=== PATIENT | female | born 1965 | race Caucasian/White ===

== ENCOUNTER 2016-07-30 10:54 | Emergency (ER) | payer MEDICARE, MEDICAID ==
[~2016-07-30] VITALS: Ht 162.6 cm; Wt 90.9 kg
[~2016-07-30 10:54] MED LIST: AMBI5TAB PO; BENZ1TAB PO; CLON1 PO; LITHIUM PO; LORA10TA7 PO; OXYB5TAB33 PO; QUET1TAB65 PO; RISPERDAL CONSTA IM; RISPERDAL PO; RISPM2 PO; TRIL600T PO
[2016-07-30 10:56] VITALS: BP 193/100; PULSE 82; RESP 16; TEMP 98.1; O2SAT 95
--- NOTE | 2016-07-30 11:03 | PD ---
Physical Exam Time Seen by Provider: 11:02 Narrative 51 year old female presents to the ED for evaluation . Pt states she needs help with her baby to be delivered. She presents with flat affect and offers no definite information. Denies psyche or medical history. Denies SI/HI. Pt presents without distress. Data Data Last Documented VS Vital Signs Date Time Temp Pulse Resp B/P Pulse Ox O2 Delivery O2 Flow Rate FiO2 07/30/16 10:56 98.1 82 16 193/100 95 Room Air Orders Complete Blood Count With Diff (07/30/16 11:03) Basic Metabolic Panel (Bmp) (07/30/16 11:03) Urinalysis - C+S If Indicated (07/30/16 11:03) Drug Screen, Random Urine (07/30/16 11:03) Ed Urine Pregnancytest Poc (07/30/16 11:03) Alcohol (Ethanol) (07/30/16 11:03) Psych Screen (07/30/16 11:03) Labs Laboratory Tests Test 07/30/16 11:10 White Blood Count 7.1 TH/MM3 Red Blood Count 4.37 MIL/MM3 Hemoglobin 11.0 GM/DL Hematocrit 34.2 % Mean Corpuscular Volume 78.3 FL Mean Corpuscular Hemoglobin 25.3 PG Mean Corpuscular Hemoglobin 32.3 % Concent Red Cell Distribution Width 15.8 % Platelet Count 253 TH/MM3 Mean Platelet Volume 8.8 FL Neutrophils (%) (Auto) 55.6 % Lymphocytes (%) (Auto) 28.5 % Monocytes (%) (Auto) 10.3 % Eosinophils (%) (Auto) 4.4 % Basophils (%) (Auto) 1.2 % Neutrophils # (Auto) 4.0 TH/MM3 Lymphocytes # (Auto) 2.0 TH/MM3 Monocytes # (Auto) 0.7 TH/MM3 Eosinophils # (Auto) 0.3 TH/MM3 Basophils # (Auto) 0.1 TH/MM3 CBC Comment DIFF FINAL Differential Comment Urine Color LIGHT-YELLOW Urine Turbidity CLEAR Urine pH 5.5 Urine Specific [place] 1.003 Urine Protein NEG mg/dL Urine Glucose (UA) NEG mg/dL Urine Ketones NEG mg/dL Urine Occult Blood NEG Urine Nitrite NEG Urine Bilirubin NEG Urine Urobilinogen LESS THAN 2.0 MG/DL Urine Leukocyte Esterase NEG Urine RBC LESS THAN 1 /hpf Urine WBC 1 /hpf Urine Squamous Epithelial 1 /hpf Cells Microscopic Urinalysis Comment CULT NOT INDICATED Sodium Level 142 MEQ/L Potassium Level 4.3 MEQ/L Chloride Level 110 MEQ/L Carbon Dioxide Level 24.1 MEQ/L Anion Gap 8 MEQ/L Blood Urea Nitrogen 18 MG/DL Creatinine 2.05 MG/DL Estimat Glomerular Filtration 26 ML/MIN Rate Random Glucose 89 MG/DL Calcium Level 9.4 MG/DL Urine Opiates Screen NEG Urine Barbiturates Screen NEG Urine Amphetamines Screen NEG Urine Benzodiazepines Screen NEG Urine Cocaine Screen NEG Urine Cannabinoids Screen NEG Ethyl Alcohol Level LESS THAN 3 MG/DL MDM Medical Record Reviewed: Yes Supervised Visit with EVANS: No Narrative Course Presumed psych with history of schizo effective d/o. Pt has a bizarre affect; poor historian; appears without distress. Work up initiated in triage. 1200 Pt with creatinine of 2. Transferred to med bed Condition: Stable Gayle Obregon Jul 30, 2016 11:03
[2016-07-30 11:33] LABS: BASOPHIL # 0.1 TH/MM3 (0-0.2); BASOPHIL % 1.2 % (0.0-2.0); EOSINOPHIL # 0.3 TH/MM3 (0-0.4); EOSINOPHIL % 4.4 % (0.0-4.0); HEMATOCRIT 34.2 % (35.0-46.0); HEMO FLAGS DIFF FINAL; LYMPH % 28.5 % (9.0-44.0); MEAN CELL VOLUME 78.3 FL (80.0-100.0); MEAN CORPUSCULAR HEMOGLOBIN 25.3 PG (27.0-34.0); MEAN CORPUSCULAR HGB CONC 32.3 % (32.0-36.0); MONO % 10.3 % (0.0-8.0); NEUT % 55.6 % (16.0-70.0); PLATELET COUNT 253 TH/MM3 (150-450); RED BLOOD COUNT 4.37 MIL/MM3 (4.00-5.30); RED CELL DISTRIBUTION WIDTH 15.8 % (11.6-17.2); WHITE BLOOD COUNT 7.1 TH/MM3 (4.0-11.0)
[2016-07-30 11:38] LABS: BLOOD, URINE NEG (NEG); GLUCOSE,URINE NEG (NEG); KETONE, URINE NEG (NEG); NITRITE,URINE NEG (NEG); PH, URINE 5.5 (5.0-8.5); SQUAMOUS EPITHELIAL CELL URINE 1 /hpf (0-5); URINE COLOR LIGHT-YELLOW (YELLW/STRAW)
[2016-07-30 11:41] LABS: AMPHETAMINE, URINE NEG (NEG); BARBITURATES, URINE NEG (NEG); COCAINE, URINE NEG (NEG)
[2016-07-30 11:47] LABS: COMMENT (UR) CULT NOT INDICATED; CULTURE IF INDICATED CULT NOT INDICATED
[2016-07-30 11:51] LABS: ANION GAP 8 MEQ/L (5-15); BICARBONATE 24.1 MEQ/L (21.0-32.0); BLOOD UREA NITROGEN 18 MG/DL (7-18); CHLORIDE 110 MEQ/L (98-107); GLOMERULAR FILTRATION RATE 26 ML/MIN (>89); POTASSIUM 4.3 MEQ/L (3.5-5.1); SODIUM (NA) 142 MEQ/L (136-145)
--- NOTE | 2016-07-30 12:33 | PD ---
Physical Exam Time Seen by Provider: 12:27 Narrative 51-year-old female with history of schizophrenia presents to the emergency room via private vehicle stating that she is in labor and would like to deliver her baby. Patient states they were started 2 days ago with nausea and vomiting. She has had no contractions, vaginal discharge, or other episodes of nausea and vomiting. States she is 9 months . Patient states her mother dropped her off at school and she walked from school at [facility] to the emergency room for evaluation of possible labor. Patient denies any chronic kidney disease and states she has been eating and drinking normally. Reports normal bladder and bowel function. Denies chronic medical conditions or daily medications. GENERAL: Well-nourished, obese female in no acute distress. Afebrile. Ambulatory. SKIN: Warm and dry. HEAD: Normocephalic. EYES: No scleral icterus. No injection or drainage. NECK: Supple, trachea midline. No JVD or lymphadenopathy. CARDIOVASCULAR: Regular rate and rhythm without murmurs, gallops, or rubs. RESPIRATORY: Breath sounds equal bilaterally. No accessory muscle use. PSYCHIATRIC: Flat affect. Patient has a delusion of . Data Data Last Documented VS Vital Signs Date Time Temp Pulse Resp B/P Pulse Ox O2 Delivery O2 Flow Rate FiO2 07/30/16 12:40 132/66 07/30/16 10:56 98.1 82 16 95 Room Air Orders Complete Blood Count With Diff (07/30/16 11:03) Basic Metabolic Panel (Bmp) (07/30/16 11:03) Urinalysis - C+S If Indicated (07/30/16 11:03) Drug Screen, Random Urine (07/30/16 11:03) Ed Urine Pregnancytest Poc (07/30/16 11:03) Alcohol (Ethanol) (07/30/16 11:03) Psych Screen (07/30/16 11:03) Sodium Chlorid 0.9% 500 Ml Inj (Ns 500 M (07/30/16 12:45) Labs Laboratory Tests Test 07/30/16 11:10 White Blood Count 7.1 TH/MM3 Red Blood Count 4.37 MIL/MM3 Hemoglobin 11.0 GM/DL Hematocrit 34.2 % Mean Corpuscular Volume 78.3 FL Mean Corpuscular Hemoglobin 25.3 PG Mean Corpuscular Hemoglobin 32.3 % Concent Red Cell Distribution Width 15.8 % Platelet Count 253 TH/MM3 Mean Platelet Volume 8.8 FL Neutrophils (%) (Auto) 55.6 % Lymphocytes (%) (Auto) 28.5 % Monocytes (%) (Auto) 10.3 % Eosinophils (%) (Auto) 4.4 % Basophils (%) (Auto) 1.2 % Neutrophils # (Auto) 4.0 TH/MM3 Lymphocytes # (Auto) 2.0 TH/MM3 Monocytes # (Auto) 0.7 TH/MM3 Eosinophils # (Auto) 0.3 TH/MM3 Basophils # (Auto) 0.1 TH/MM3 CBC Comment DIFF FINAL Differential Comment Urine Color LIGHT-YELLOW Urine Turbidity CLEAR Urine pH 5.5 Urine Specific [place] 1.003 Urine Protein NEG mg/dL Urine Glucose (UA) NEG mg/dL Urine Ketones NEG mg/dL Urine Occult Blood NEG Urine Nitrite NEG Urine Bilirubin NEG Urine Urobilinogen LESS THAN 2.0 MG/DL Urine Leukocyte Esterase NEG Urine RBC LESS THAN 1 /hpf Urine WBC 1 /hpf Urine Squamous Epithelial 1 /hpf Cells Microscopic Urinalysis Comment CULT NOT INDICATED Sodium Level 142 MEQ/L Potassium Level 4.3 MEQ/L Chloride Level 110 MEQ/L Carbon Dioxide Level 24.1 MEQ/L Anion Gap 8 MEQ/L Blood Urea Nitrogen 18 MG/DL Creatinine 2.05 MG/DL Estimat Glomerular Filtration 26 ML/MIN Rate Random Glucose 89 MG/DL Calcium Level 9.4 MG/DL Urine Opiates Screen NEG Urine Barbiturates Screen NEG Urine Amphetamines Screen NEG Urine Benzodiazepines Screen NEG Urine Cocaine Screen NEG Urine Cannabinoids Screen NEG Ethyl Alcohol Level LESS THAN 3 MG/DL [facility] Medical Record Reviewed: Yes Supervised Visit with EVANS: Yes Differential Diagnosis Schizophrenia versus versus acute kidney injury Narrative Course 51-year-old female with history of schizophrenia presents to the emergency room for labor and delivery. Patient states she is 9 months and started labor 2-3 days ago. Denies any current symptoms. Patient has delusions of . States she is eating and drinking normally and using the restroom normally. Abdomen is soft, nontender, nongravid. CBC is unremarkable. Drug screen and alcohol are negative. UA is negative. ED urine test is negative. BMP shows mild elevation of creatinine. Patient denies any chronic kidney disease. She was given 500 cc bolus. I spoke to my attending physician , Dr. Sprague, who agrees there is no indication for medical admission. Patient is medically cleared for psychiatric evaluation and disposition. Diagnosis Primary Impression: Medical clearance for psychiatric admission Scripts No Active Prescriptions or Reported Meds Condition: Stable Oksana Olivares Jul 30, 2016 12:33
[2016-07-30 12:40] VITALS: BP 132/66
[2016-07-30] MEDS ORDERED: SODIUM CHLORID 0.9% 500 ML INJ 500 ML IV ONE (12:45)
--- NOTE | 2016-07-30 14:05 | PD ---
HPI Chief Complaint: Psychiatric Symptoms Time Seen by Provider: 12:33 Travel History International Travel<30 days: No Contact w/Intl Traveler<30days: No Traveled to known affect area: No History of Present Illness HPI 51-year-old female with history of schizophrenia presents to the emergency room via private vehicle stating that she is in labor and would like to deliver her baby. Patient states they were started 2 days ago with nausea and vomiting. She has had no contractions, vaginal discharge, or other episodes of nausea and vomiting. States she is 9 months . Patient states her mother dropped her off at school and she walked from school at [facility] to the emergency room for evaluation of possible labor. Patient denies any chronic kidney disease and states she has been eating and drinking normally. Reports normal bladder and bowel function. Denies chronic medical conditions or daily medications. PFSH Past Medical History Medical History: Denies Significant Hx Blood Disorders: No Cancer: No Cardiovascular Problems: Yes High Cholesterol: Yes Diminished Hearing: No Endocrine: No Gastrointestinal Disorders: No Genitourinary: No Hypertension: Yes Immune Disorder: No Implanted Vascular Access Dvce: No Musculoskeletal: No Neurologic: No Psychiatric: Yes (LONG HISTORY OF SCHIZOAFFECTIVE) Reproductive: No Respiratory: Yes Myocardial Infarction: No ?: Unknown LMP: this month : 1 Para: 1 Past Surgical History Surgical History: No Previous Surgery Other Surgery: No (DENIES) Social History Alcohol Use: No Tobacco Use: Yes (1/2 TO 1PPD CIGARETTES) Substance Use: No (REMOTE HX) Allergies-Medications (Allergen,Severity, Reaction): Coded Allergies: No Known Allergies (Verified , 10/19/09) Reported Meds & Prescriptions Reported Meds & Active Scripts Active No Active Prescriptions or Reported Medications Review of Systems Except as stated in HPI: all other systems reviewed are Neg Physical Exam Narrative GENERAL: Well-nourished, obese female in no acute distress. Afebrile. Ambulatory. SKIN: Warm and dry. HEAD: Normocephalic. EYES: No scleral icterus. No injection or drainage. NECK: Supple, trachea midline. No JVD or lymphadenopathy. CARDIOVASCULAR: Regular rate and rhythm without murmurs, gallops, or rubs. RESPIRATORY: Breath sounds equal bilaterally. No accessory muscle use. PSYCHIATRIC: Flat affect. Patient has a delusion of . Data Data Last Documented VS Vital Signs Date Time Temp Pulse Resp B/P Pulse Ox O2 Delivery O2 Flow Rate FiO2 07/30/16 12:40 132/66 07/30/16 10:56 98.1 82 16 95 Room Air Orders Complete Blood Count With Diff (07/30/16 11:03) Basic Metabolic Panel (Bmp) (07/30/16 11:03) Urinalysis - C+S If Indicated (07/30/16 11:03) Drug Screen, Random Urine (07/30/16 11:03) Ed Urine Pregnancytest Poc (07/30/16 11:03) Alcohol (Ethanol) (07/30/16 11:03) Psych Screen (07/30/16 11:03) Sodium Chlorid 0.9% 500 Ml Inj (Ns 500 M (07/30/16 12:45) Labs Laboratory Tests Test 07/30/16 11:10 White Blood Count 7.1 TH/MM3 Red Blood Count 4.37 MIL/MM3 Hemoglobin 11.0 GM/DL Hematocrit 34.2 % Mean Corpuscular Volume 78.3 FL Mean Corpuscular Hemoglobin 25.3 PG Mean Corpuscular Hemoglobin 32.3 % Concent Red Cell Distribution Width 15.8 % Platelet Count 253 TH/MM3 Mean Platelet Volume 8.8 FL Neutrophils (%) (Auto) 55.6 % Lymphocytes (%) (Auto) 28.5 % Monocytes (%) (Auto) 10.3 % Eosinophils (%) (Auto) 4.4 % Basophils (%) (Auto) 1.2 % Neutrophils # (Auto) 4.0 TH/MM3 Lymphocytes # (Auto) 2.0 TH/MM3 Monocytes # (Auto) 0.7 TH/MM3 Eosinophils # (Auto) 0.3 TH/MM3 Basophils # (Auto) 0.1 TH/MM3 CBC Comment DIFF FINAL Differential Comment Urine Color LIGHT-YELLOW Urine Turbidity CLEAR Urine pH 5.5 Urine Specific [place] 1.003 Urine Protein NEG mg/dL Urine Glucose (UA) NEG mg/dL Urine Ketones NEG mg/dL Urine Occult Blood NEG Urine Nitrite NEG Urine Bilirubin NEG Urine Urobilinogen LESS THAN 2.0 MG/DL Urine Leukocyte Esterase NEG Urine RBC LESS THAN 1 /hpf Urine WBC 1 /hpf Urine Squamous Epithelial 1 /hpf Cells Microscopic Urinalysis Comment CULT NOT INDICATED Sodium Level 142 MEQ/L Potassium Level 4.3 MEQ/L Chloride Level 110 MEQ/L Carbon Dioxide Level 24.1 MEQ/L Anion Gap 8 MEQ/L Blood Urea Nitrogen 18 MG/DL Creatinine 2.05 MG/DL Estimat Glomerular Filtration 26 ML/MIN Rate Random Glucose 89 MG/DL Calcium Level 9.4 MG/DL Urine Opiates Screen NEG Urine Barbiturates Screen NEG Urine Amphetamines Screen NEG Urine Benzodiazepines Screen NEG Urine Cocaine Screen NEG Urine Cannabinoids Screen NEG Ethyl Alcohol Level LESS THAN 3 MG/DL MDM Medical Decision Making Medical Screen Exam Complete: Yes Emergency Medical Condition: Yes Medical Record Reviewed: Yes Differential Diagnosis schizophrenia versus acute kidney injury versus dehydration Narrative Course 51-year-old female with history of schizophrenia presents to the emergency room for labor and delivery. Patient states she is 9 months and started labor 2-3 days ago. Denies any current symptoms. Patient has delusions of . States she is eating and drinking normally and using the restroom normally. Abdomen is soft, nontender, nongravid. CBC is unremarkable. Drug screen and alcohol are negative. UA is negative. ED urine test is negative. BMP shows mild elevation of creatinine. Patient denies any chronic kidney disease. She was given 500 cc bolus. I spoke to my attending physician , Dr. Sprague, who agrees there is no indication for medical admission. Patient is medically cleared for psychiatric evaluation and disposition. Diagnosis Primary Impression: Medical clearance for psychiatric admission Additional Impression: Acute kidney injury Scripts No Active Prescriptions or Reported Meds Condition: Oksana Galo Jul 30, 2016 14:05
[2016-07-30 15:00] VITALS: BP 128/54; PULSE 68; RESP 18; O2SAT 97
[2016-07-30 18:38] VITALS: BP 131/73; PULSE 63; RESP 18; O2SAT 95
[2016-07-30 23:10] VITALS: BP 123/88; PULSE 61; RESP 16; O2SAT 100
[2016-07-31 02:42] VITALS: BP 133/83; PULSE 50; RESP 18; O2SAT 97
[2016-07-31 06:24] VITALS: BP 150/80; PULSE 75; RESP 19; TEMP 97.3; O2SAT 97
--- NOTE | 2016-07-31 07:17 | PD ---
History of Present Illness Chief Complaint: Psychiatric Symptoms Time Seen by Provider: 07:00 Travel History International Travel<30 Days: No Contact w/Intl Traveler<30days: No Known affected area: No Legal Status Legal Status: Voluntary History of Present Illness: History of Present Illness 51-year-old female with history of schizoaffective disorder who presents to the emergency room via private vehicle and stated that "she is in labor and would like to deliver her baby". Patient was referred to psychiatric for evaluation as she is obviously not . The patient was monitored over night in J pod. She was calm and presented no behavioral concerns. In reviewing the EMR the patient was least seen at [facility] and treated by psychiatry in 2009. She is alert, oriented, engaging and cooperative. She appears stated age and is maintaining basic hygiene. Speech is clear and logical although there is a slight delay in her responses. She does not appear to be responding to internal stimuli and denies any hallucinatory process. When asked why she came to the hospital she relates that she was at [facility] and owes some money and the police were called and she was told to come to the hospital. She does anot talk about being . She does not endorse any significant depression or anxiety at this time. No suicidal or homicidal ideation, intent or plan. She denies that she is currently under psychiatric treatment or that she has ever received psychiatric treatment. She is eating and sleeping well. Telephone call to her mother, Mary Jane Villanueva at [phone], to obtain collateral information. Mother reports " she has andrew nice at home and that she was worse when she took medication. She even wants to go to school now. She has no concerns if she is discharged." PFSH Past Medical History Medical History: Denies Significant Hx Blood Disorders: No Cancer: No Cardiovascular Problems: Yes High Cholesterol: Yes Diminished Hearing: No Endocrine: No Gastrointestinal Disorders: No Genitourinary: No Hypertension: Yes Immune Disorder: No Implanted Vascular Access Dvce: No Musculoskeletal: No Neurologic: No Psychiatric: Yes (LONG HISTORY OF SCHIZOAFFECTIVE) Reproductive: No Respiratory: Yes Myocardial Infarction: No ?: Unknown LMP: this month : 1 Para: 1 Past Surgical History Surgical History: No Previous Surgery Other Surgery: No (DENIES) Psychiatric History Psychiatric History Hx Psychiatric Treatment: PATIENT WAS LAST ADMITTED TO [facility] FROM 07/09/10 TO 07/22/10 FOR SCHIZOAFFECTIVE DISORDER. History of Inpatient Treatment: Yes Guns or firearms in home: No Social History single female. Lives with her mother.Unemployed Hx Alcohol Use: No Hx Tobacco Use: Yes (1/2 TO 1PPD CIGARETTES) Hx Substance Use: No Hx of Substance Use Treatment: No Family Psychiatric History none reported Allergies-Medications (Allergen,Severity, Reaction): Coded Allergies: No Known Allergies (Verified , 10/19/09) Reported Meds & Prescriptions Reported Meds & Active Scripts Active No Active Prescriptions or Reported Medications Review of Systems Except as stated in HPI: all other systems reviewed are Neg Psychiatric: COMPLAINS OF: Delusions (believes she is ) Exam Alert: Yes [place]: Person (ox 4) Mood: Calm Affect: Euthymic Speech: Clear, Logical Eye Contact: Normal Memory Intact: Comment (not formally tetsted) [facility] Medical Decision Making Medical Record Reviewed: Yes Assessment/Plan 51 year old female with history of schizoaffective disorder who comes to the hospital on a voluntary basis reporting that she was in labor. Patient did not present any other psychiatric symptomatology. There is no suicidal or homicidal ideation intent or plan. At this time the patient is not presenting any criteria for inpatient psychiatric treatment and does not meet any criteria for BA. Furthermore her mother has no concerns for her current psychiatric status and reports she is doing well. At this time she will be discharged. The mother will bring the patient to her PCP for evaluation. Orders Complete Blood Count With Diff (07/30/16 11:03) Basic Metabolic Panel (Bmp) (07/30/16 11:03) Urinalysis - C+S If Indicated (07/30/16 11:03) Drug Screen, Random Urine (07/30/16 11:03) Ed Urine Pregnancytest Poc (07/30/16 11:03) Alcohol (Ethanol) (07/30/16 11:03) Psych Screen (07/30/16 11:03) Sodium Chlorid 0.9% 500 Ml Inj (Ns 500 M (07/30/16 12:45) Diet Regular Basic (07/30/16 Dinner) Diet Regular Basic (07/31/16 Breakfast) Results Vital Signs Date Time Temp Pulse Resp B/P Pulse Ox O2 Delivery O2 Flow Rate FiO2 07/31/16 06:24 97.3 75 19 150/80 97 Room Air 07/31/16 02:42 50 18 133/83 97 Room Air 07/30/16 23:10 61 16 123/88 100 07/30/16 18:38 63 18 131/73 95 Room Air 07/30/16 15:00 68 18 128/54 97 Room Air 07/30/16 12:40 132/66 07/30/16 10:56 98.1 82 16 193/100 95 Room Air Laboratory Tests Test 07/30/16 11:10 White Blood Count 7.1 Red Blood Count 4.37 Hemoglobin 11.0 Hematocrit 34.2 Mean Corpuscular Volume 78.3 Mean Corpuscular Hemoglobin 25.3 Mean Corpuscular Hemoglobin 32.3 Concent Red Cell Distribution Width 15.8 Platelet Count 253 Mean Platelet Volume 8.8 Neutrophils (%) (Auto) 55.6 Lymphocytes (%) (Auto) 28.5 Monocytes (%) (Auto) 10.3 Eosinophils (%) (Auto) 4.4 Basophils (%) (Auto) 1.2 Neutrophils # (Auto) 4.0 Lymphocytes # (Auto) 2.0 Monocytes # (Auto) 0.7 Eosinophils # (Auto) 0.3 Basophils # (Auto) 0.1 CBC Comment DIFF FINAL Differential Comment Urine Color LIGHT-YELLOW Urine Turbidity CLEAR Urine pH 5.5 Urine Specific [place] 1.003 Urine Protein NEG Urine Glucose (UA) NEG Urine Ketones NEG Urine Occult Blood NEG Urine Nitrite NEG Urine Bilirubin NEG Urine Urobilinogen LESS THAN 2.0 Urine Leukocyte Esterase NEG Urine RBC LESS THAN 1 Urine WBC 1 Urine Squamous Epithelial 1 Cells Microscopic Urinalysis Comment CULT NOT INDICATED Sodium Level 142 Potassium Level 4.3 Chloride Level 110 Carbon Dioxide Level 24.1 Anion Gap 8 Blood Urea Nitrogen 18 Creatinine 2.05 Estimat Glomerular Filtration 26 Rate Random Glucose 89 Calcium Level 9.4 Urine Opiates Screen NEG Urine Barbiturates Screen NEG Urine Amphetamines Screen NEG Urine Benzodiazepines Screen NEG Urine Cocaine Screen NEG Urine Cannabinoids Screen NEG Ethyl Alcohol Level LESS THAN 3 Diagnosis Primary Impression: Schizoaffective disorder Psychiatrically Cleared: Yes Med/ Other Pt Specific Info: No Change to Meds Prescriptions No Active Prescriptions or Reported Meds Disposition: 01 DISCHARGE HOME Condition: Stable Problem Qualifiers Primary Impression: Schizoaffective disorder Qualified Code: F25.0 - Schizoaffective disorder, bipolar type Annel Anderson Jul 31, 2016 07:17
[2016-07-31 07:48] VITALS: BP 150/80; PULSE 75; RESP 19; O2SAT 97
== END 2016-07-31 08:40 | disposition home or self-care (01) ==
LOC: NEPC 10:54 → NEPJ 07-31 08:40
DX: E78.00 Pure hypercholesterolemia, unspecified (principal); I10 Essential (primary) hypertension; F17.210 Nicotine dependence, cigarettes, uncomplicated
CPT/HCPCS: 80048; 80307; 81001; 84703; 85025; 96360; 99284; J7040; 80320

== ENCOUNTER 2018-01-17 17:27 | Observation (INO) ==
[2018-01-17] MEDS ORDERED: Sod Chloride 0.9% Inj 1,000 ML IV.SIG ONE ×2 (18:19→19:32)
[2018-01-17 18:49] LABS: Baso # (Auto) 0.1 th/mm3 (0.0-0.2); Baso % (Auto) 0.7 % (0.0-2.0); Eos # (Auto) 0.9 th/mm3 (0.0-0.4); Eos % (Auto) 4.4 % (0.0-4.0); Hematocrit 34.1 % (35.0-46.0); Hemoglobin 10.6 gm/dL (11.6-15.3); Lymph # (Auto) 4.2 th/mm3 (1.0-4.8); Lymph % (Auto) 21.4 % (9.0-44.0); Mean Corpuscular HGB Conc 31.1 % (32.0-36.0); Mean Corpuscular Hemoglobin 26.1 pg (27.0-34.0); Mean Corpuscular Volume 83.9 fL (80.0-100.0); Mean Platelet Volume 8.5 fL (7.0-11.0); Mono # (Auto) 1.5 th/mm3 (0.0-0.9); Mono % (Auto) 7.6 % (0.0-8.0); Neut # (Auto) 12.8 th/mm3 (1.8-7.7); Neut % (Auto) 65.9 % (16.0-70.0); Platelet Count 298 th/mm3 (150-450); Red Blood Count 4.06 mil/mm3 (4.00-5.30); Red Cell Distribution Width 16.9 % (11.6-17.2); White Blood Count 19.5 th/mm3 (4.0-11.0)
[2018-01-17 19:06] LABS: Anion Gap 23 meq/L (5-15); Aspartate Aminotransferase 18 U/L (15-37); Blood Urea Nitrogen 22 mg/dL (7-18); Calcium 8.7 mg/dL (8.5-10.1); Carbon Dioxide 11.1 meq/L (21.0-32.0); Chloride 108 meq/L (98-107); Glomerular Filtration Rate 22 mL/min (>89); Glucose,Random 115 mg/dL (74-106); Magnesium 2.5 mg/dL (1.5-2.5); Potassium 3.6 meq/L (3.5-5.1); Sodium 142 meq/L (136-145)
[2018-01-17 19:11] LABS: Alanine Aminotransferase 18 U/L (10-53); Alkaline Phosphatase 74 U/L (45-117); Total Protein 6.8 g/dL (6.4-8.2)
--- NOTE | 2018-01-17 19:40 | XR ---
EXAM DATE: 01/17/2018 7:35 PM EDT AGE/SEX: 52 years / Female INDICATIONS: Short of breath. CLINICAL DATA: This is the patient's initial encounter. Patient reports that signs and symptoms have been present for 1 day and indicates a pain score of 0/10. MEDICAL/SURGICAL HISTORY: None. None. COMPARISON: No prior exams available for comparison. FINDINGS: PA and lateral views of the chest demonstrate basilar density, probably atelectasis. Heart size mildl y enlarged. No pneumothorax or significant effusion. CONCLUSION: Probable basilar atelectasis. Exam limited by patient size. Electronically signed by: Husam Archer MD 01/17/2018 7:39 PM EDT
--- NOTE | 2018-01-17 19:54 | ED ---
HPI General Chief complaint: Anxiety Stated complaint: Evac/Anxiety Time Seen by Provider: 01/17/18 18:11 Source: patient and EMS Mode of arrival: ambulatory Limitations: no limitations History of Present Illness HPI narrative: Department for evaluation after a near syncopal episode. Patient states that she suddenly had this sense of impending doom, over her and she fell to her knees. Patient states that she felt sweaty and short of breath. She denies any chest pain, headache, dizziness. She denies feeling poorly prior to that moment.. Symptom onset was sudden, symptoms are moderate in nature. Patient reports that she gets very anxious when she goes outside. Related Data Home Medications Medication Instructions Recorded Confirmed divalproex 500 mg PO BID 01/17/18 01/17/18 levothyroxine 100 mcg PO DAILY 01/17/18 01/17/18 trazodone 50 mg PO HS 01/17/18 01/17/18 Previous Rx's Medication Instructions Recorded clonidine HCl [Catapres] 0.1 mg PO Q6H PRN tab 01/18/18 hydroxyzine HCl 25 mg PO Q6H PRN tab 01/18/18 Allergies Allergy/AdvReac Type Severity Reaction Status Date / Time No Known Allergies Allergy Severe Uncoded 10/19/09 12:18 Review of Systems Except as stated in HPI: all other systems reviewed are negative Constitutional Reports system reviewed and no additional complaints, except as docu Eyes Reports system reviewed and no additional complaints, except as docu and Denies blurry vision ENT Reports system reviewed and no additional complaints, except as docu Cardiovascular Reports diaphoresis, Reports rapid heart rate and Reports lightheadedness Respiratory Reports dyspnea Gastrointestinal Reports system reviewed and no additional complaints, except as docu Genitourinary Reports system reviewed and no additional complaints, except as docu Musculoskeletal Reports system reviewed and no additional complaints, except as docu Integumentary/Breasts Reports wounds (Abrasions to bilateral anterior knees.) Neurologic Reports system reviewed and no additional complaints, except as docu Psychiatric Reports system reviewed and no additional complaints, except as docu [facility] Medical History Medical History HTN (hypertension) (Acute) Hypothyroidism (Acute) Anxiety (Chronic) Depression (Chronic) Insomnia (Chronic) Surgical History Surgical History No history of previous surgery (Chronic) Family History Family History Sister No family history of coronary artery disease Other Bipolar disorder Social History Social History Substance History: No History of Abuse Second Hand Smoke Exposure: Yes Smoking Status: Current every day smoker Tobacco Type: Cigarettes How Often Do You Have a Drink Containing Alcohol: Monthly or less Immunization History Tetanus Immunization: >5 Years Exam Const General: cooperative, comfortable, no acute distress and disheveled Nutritional Appearance: obese Orientation: alert, awake and oriented x3 HENMT Head: normal to inspection Ears: hearing grossly normal bilaterally Eyes Pupils: PERRL EOM: EOM intact bilaterally Resp Effort & Inspection: able to speak in complete sentences, no audible wheezes and tachypneic Auscultation: diminished lung sounds Cardio Rate: regular rate and tachycardic Rhythm: regular rhythm Skin Trauma: abrasion (bilateral anterior knees) Neuro General: alert, awake, oriented x3 and CN's II-XI intact bilaterally Motor: muscle tone normal throughout and strength 5/5 throughout Extrem General: normal to inspection Psych Appearance: disheveled Mental Status: mental status grossly normal Speech and Movement: speech and movement normal Mood: congruent mood Affect: euphoric affect Attitude: cooperative Thought Process: normal Course Initial Documented Vital Signs Temperature 99.2 F 01/17/18 17:40 Pulse Rate 113 H 01/17/18 17:40 Respiratory Rate 28 H 01/17/18 17:40 Blood Pressure 89/53 L 01/17/18 17:40 Pulse Oximetry 94 L 01/17/18 17:40 Last Documented Vital Signs Temperature 98.9 F 01/18/18 16:00 Pulse Rate 81 01/18/18 16:00 Respiratory Rate 19 01/18/18 16:00 Blood Pressure 112/70 01/18/18 16:00 Pulse Oximetry 94 L 01/18/18 16:00 Medical Decision Making [facility] Narrative Medical decision making narrative: Patient is a 52-year-old female that presented after which she calls a panic attack caused her to fall to her knees. Patient presented tachycardic and hypotensive. Patient is a poor historian. Labs and imaging ordered and pending. Labs reviewed, CBC with white blood cell count of 19.5. BUN and creatinine are elevated 22/2.36, IVF ordered and infusing. VQ scan pending. Urinalysis is unremarkable Patient will be admitted for near syncopal episode, leukocytosis, acute renal insufficiency. Discussed plan of care with my attending physician prior to the end of her shift. Differential Diagnosis Differential Diagnosis: Metabolic abnormality versus sepsis versus arrhythmia versus pulmonary embolism versus other Lab Data Lab results reviewed: Yes I reviewed the patient's lab results. Result diagrams: 01/17/18 18:30 01/17/18 18:30 Lab Results 01/17/18 01/17/18 01/17/18 Range/Units 18:30 18:30 18:30 WBC 19.5 H (4.0-11.0) th/mm3 RBC 4.06 (4.00-5.30) mil/mm3 Hgb 10.6 L (11.6-15.3) gm/dL Hct 34.1 L (35.0-46.0) % MCV 83.9 (80.0-100.0) fL MCH 26.1 L (27.0-34.0) pg MCHC 31.1 L (32.0-36.0) % RDW 16.9 (11.6-17.2) % Plt Count 298 (150-450) th/mm3 MPV 8.5 (7.0-11.0) fL Neut % (Auto) 65.9 (16.0-70.0) % Lymph % (Auto) 21.4 (9.0-44.0) % [place] % (Auto) 7.6 (0.0-8.0) % Eos % (Auto) 4.4 H (0.0-4.0) % Baso % (Auto) 0.7 (0.0-2.0) % Neut # (Auto) 12.8 H (1.8-7.7) th/mm3 Lymph # (Auto) 4.2 (1.0-4.8) th/mm3 [place] # (Auto) 1.5 H (0.0-0.9) th/mm3 Eos # (Auto) 0.9 H (0.0-0.4) th/mm3 Baso # (Auto) 0.1 (0.0-0.2) th/mm3 WBC Differential . Differential Comment Auto diff final Sodium 142 (136-145) meq/L Potassium 3.6 (3.5-5.1) meq/L Chloride 108 H (98-107) meq/L Carbon Dioxide 11.1 L (21.0-32.0) meq/L Anion Gap 23 H (5-15) meq/L BUN 22 H (7-18) mg/dL Creatinine 2.36 H (0.50-1.00) mg/dL Estimated GFR 22 L (>89) mL/min POC Glucose 142 H (68-110) mg/dl Random Glucose 115 H (74-106) mg/dL Calcium 8.7 (8.5-10.1) mg/dL Magnesium 2.5 (1.5-2.5) mg/dL Total Bilirubin 0.2 (0.2-1.0) mg/dL AST 18 (15-37) U/L ALT 18 (10-53) U/L Alkaline Phosphatase 74 (45-117) U/L Troponin I Less than 0.02 L (0.02-0.05) ng/mL Total Protein 6.8 (6.4-8.2) g/dL Albumin 3.0 L (3.4-5.0) g/dL Urine Color (Yellw/Straw) Urine Clarity (Clear) Urine pH (5.0-8.5) Ur Specific [place] (1.002-1.035) Urine Protein (Neg-Trace) mg/dL Urine Glucose (UA) (Negative) mg/dL Urine Ketones (Negative) mg/dL Urine Occult Blood (Negative) Urine Nitrate (Negative) Urine Bilirubin (Negative) Urine Urobilinogen (Less than 2) mg/dL Ur Leukocyte Esterase (Negative) Urine RBC (0-3) /hpf Urine WBC (0-5) /hpf Ur Squamous Epith Cells (0-5) /hpf Micro UA Comment Urine Culture Comments Valproic Acid (50-100) mcg/mL 01/17/18 01/17/18 01/18/18 Range/Units 18:30 21:10 01:35 WBC (4.0-11.0) th/mm3 RBC (4.00-5.30) mil/mm3 Hgb (11.6-15.3) gm/dL Hct (35.0-46.0) % MCV (80.0-100.0) fL MCH (27.0-34.0) pg MCHC (32.0-36.0) % RDW (11.6-17.2) % Plt Count (150-450) th/mm3 MPV (7.0-11.0) fL Neut % (Auto) (16.0-70.0) % Lymph % (Auto) (9.0-44.0) % [place] % (Auto) (0.0-8.0) % Eos % (Auto) (0.0-4.0) % Baso % (Auto) (0.0-2.0) % Neut # (Auto) (1.8-7.7) th/mm3 Lymph # (Auto) (1.0-4.8) th/mm3 [place] # (Auto) (0.0-0.9) th/mm3 Eos # (Auto) (0.0-0.4) th/mm3 Baso # (Auto) (0.0-0.2) th/mm3 WBC Differential Differential Comment Sodium (136-145) meq/L Potassium (3.5-5.1) meq/L Chloride (98-107) meq/L Carbon Dioxide (21.0-32.0) meq/L Anion Gap (5-15) meq/L BUN (7-18) mg/dL Creatinine (0.50-1.00) mg/dL Estimated GFR (>89) mL/min POC Glucose (68-110) mg/dl Random Glucose (74-106) mg/dL Calcium (8.5-10.1) mg/dL Magnesium (1.5-2.5) mg/dL Total Bilirubin (0.2-1.0) mg/dL AST (15-37) U/L ALT (10-53) U/L Alkaline Phosphatase (45-117) U/L Troponin I Less than 0.02 L (0.02-0.05) ng/mL Total Protein (6.4-8.2) g/dL Albumin (3.4-5.0) g/dL Urine Color Straw (Yellw/Straw) Urine Clarity Hazy H (Clear) Urine pH 6.0 (5.0-8.5) Ur Specific [place] 1.003 (1.002-1.035) Urine Protein Negative (Neg-Trace) mg/dL Urine Glucose (UA) Negative (Negative) mg/dL Urine Ketones Negative (Negative) mg/dL Urine Occult Blood Small H (Negative) Urine Nitrate Negative (Negative) Urine Bilirubin Negative (Negative) Urine Urobilinogen Less than 2 (Less than 2) mg/dL Ur Leukocyte Esterase Negative (Negative) Urine RBC 1 (0-3) /hpf Urine WBC 2 (0-5) /hpf Ur Squamous Epith Cells 1 (0-5) /hpf Micro UA Comment Culture not ind Urine Culture Comments Culture not ind Valproic Acid 47 L (50-100) mcg/mL 01/18/18 Range/Units 06:20 WBC (4.0-11.0) th/mm3 RBC (4.00-5.30) mil/mm3 Hgb (11.6-15.3) gm/dL Hct (35.0-46.0) % MCV (80.0-100.0) fL MCH (27.0-34.0) pg MCHC (32.0-36.0) % RDW (11.6-17.2) % Plt Count (150-450) th/mm3 MPV (7.0-11.0) fL Neut % (Auto) (16.0-70.0) % Lymph % (Auto) (9.0-44.0) % [place] % (Auto) (0.0-8.0) % Eos % (Auto) (0.0-4.0) % Baso % (Auto) (0.0-2.0) % Neut # (Auto) (1.8-7.7) th/mm3 Lymph # (Auto) (1.0-4.8) th/mm3 [place] # (Auto) (0.0-0.9) th/mm3 Eos # (Auto) (0.0-0.4) th/mm3 Baso # (Auto) (0.0-0.2) th/mm3 WBC Differential Differential Comment Sodium (136-145) meq/L Potassium (3.5-5.1) meq/L Chloride (98-107) meq/L Carbon Dioxide (21.0-32.0) meq/L Anion Gap (5-15) meq/L BUN (7-18) mg/dL Creatinine (0.50-1.00) mg/dL Estimated GFR (>89) mL/min POC Glucose (68-110) mg/dl Random Glucose (74-106) mg/dL Calcium (8.5-10.1) mg/dL Magnesium (1.5-2.5) mg/dL Total Bilirubin (0.2-1.0) mg/dL AST (15-37) U/L ALT (10-53) U/L Alkaline Phosphatase (45-117) U/L Troponin I 0.16 H D (0.02-0.05) ng/mL Total Protein (6.4-8.2) g/dL Albumin (3.4-5.0) g/dL Urine Color (Yellw/Straw) Urine Clarity (Clear) Urine pH (5.0-8.5) Ur Specific [place] (1.002-1.035) Urine Protein (Neg-Trace) mg/dL Urine Glucose (UA) (Negative) mg/dL Urine Ketones (Negative) mg/dL Urine Occult Blood (Negative) Urine Nitrate (Negative) Urine Bilirubin (Negative) Urine Urobilinogen (Less than 2) mg/dL Ur Leukocyte Esterase (Negative) Urine RBC (0-3) /hpf Urine WBC (0-5) /hpf Ur Squamous Epith Cells (0-5) /hpf Micro UA Comment Urine Culture Comments Valproic Acid (50-100) mcg/mL Imaging Data Radiologist's impression: ITS Impressions Chest X-Ray 01/17/18 18:19 CONCLUSION: Probable basilar atelectasis. Exam limited by patient size. Pulmonary Perfusion Imaging 01/17/18 19:37 CONCLUSION: 1. Low probability for pulmonary embolus. Carotid Doppler Study 01/18/18 00:00 CONCLUSION: Negative examination for a hemodynamically significant carotid stenosis. Luke Clay MD FACR Radiologist report reviewed. Discharge Plan Discharge Disposition Patient Disposition: 30 Still Patient Discharge Condition Condition: Stable Discharge Order Discharge Orders: Discharge Order (Routine); Ordered 01/18/18 Ordered By: Jonathan Kumari Discharge Details Diagnosis: Syncope, near, Acute hypotension, Leukocytosis Physicians Team ED Provider: Lakeisha Orantes ED Midlevel Provider: Mago Mcgill Primary Care Provider: Primary Care Radha,Milagro Attending Provider: Michelle Begum Other Providers: Oscar Zimmer Status ED Status: Left Department Discharge Information Discharge Date/Time: 01/18/18 02:39
[2018-01-17 21:22] LABS: Bilirubin,Urine Negative (Negative); Clarity,Urine Hazy (Clear); Color,Urine Straw (Yellw/Straw); Glucose,Urine (UA) Negative (Negative); Leukocyte Esterase,Urine Negative (Negative); Nitrite,Urine Negative (Negative); Specific Gravity,Urine 1.003 (1.002-1.035); Squamous Epithelial Cell,Urine 1 /hpf (0-5)
--- NOTE | 2018-01-17 22:45 | NM ---
EXAM DATE: 01/17/2018 10:41 PM EDT AGE/SEX: 52 years / Female INDICATIONS: Syncope and tachycardia. CLINICAL DATA: This is the patient's initial encounter. Patient reports that signs and symptoms have been present for 1 day and indicates a pain score of 0/10. MEDICAL/SURGICAL HISTORY: . Smoker. None. COMPARISON: [facility] [place], CHEST 2V PA&LAT, 01/17/2018. . DOSE: 0.96 mCi Tc99m DTPA aerosol 8.8 mCi Tc99m MAA IV TECHNIQUE: Following five minutes of tidal breathing of DTPA aerosol, planar images of the lungs wer e performed in eight projections. The patient was then injected with MAA, and eight-view perfusion s can was performed. FINDINGS: There is a homogeneous pattern of aerosol delivery to the periphery of both lungs. No focal ventilat ory defects are seen. The perfusion lung scan demonstrates a homogenous pattern of uptake in both lungs except for some chelsy nting of the costophrenic angles. No segmental or subsegmental defects are seen. CONCLUSION: 1. Low probability for pulmonary embolus. Electronically signed by: Husam Archer MD 01/17/2018 10:44 PM EDT
--- NOTE | 2018-01-18 00:26 | P.HP ---
History of Present Illness Service: [facility] Primary Care Physician: No Primary Care Physician Chief Complaint: Anxiety, syncope History of Present Illness: 52-year-old female with a past medical history significant for hypertension and hypothyroidism presents to the emergency department for the evaluation of a possible syncopal episode. The patient reports that she was walking down the street when she started having an anxiety attack. She reports that she fell in the street on the sidewalk and then again in her neighbor's yard. She is not sure if she lost consciousness. She denies any loss of bowel or bladder. The patient reports that the anxiety stems from a fear of her surround she states that these episodes routinely happen. She denies any chest pain or shortness of breath. No abdominal pain. No nausea/vomiting/diarrhea. No heart palpitations. No fever/chills. No lateralizing signs/symptoms. Inpatient Certification: I certify that the inpatient services were ordered in accordance with Medicare regulations governing the order. This includes certification that hospital inpatient services are reasonable and necessary and in the case of services not specified as inpatient-only under 42 CFR 419.22(n), that they are appropriately provided as inpatient services in accordance to with the 2-midnight benchmark under 43 CFR 412.3(e) Review of Systems All other systems reviewed negative except as stated in HPI PMFSH - History History Provided By: Patient - Medical History Medical History: Medical History (Last Updated 01/18/18 @ 00:22 by Ping Garcia MD) HTN (hypertension) Hypothyroidism Anxiety Depression Insomnia - Surgical History Surgical History: Surgical History (Last Updated 01/17/18 @ 19:47 by GIANCARLO Singletary) No history of previous surgery - Family History Family History: Family History (Last Updated 01/18/18 @ 00:23 by Ping Garcia MD) Other No family history of coronary artery disease - Tobacco History Second Hand Smoke Exposure: Yes Tobacco Use In Past 30 Days: Yes Smoking Status: Current every day smoker Tobacco Type: Cigarettes - Alcohol History How Often Do You Have a Drink Containing Alcohol: Never - Substance Use History Substance History: No History of Abuse - Travel History Recent Travel in the [place] Within the Last 8 Weeks: No Recent Travel Out of the Country Within the Last 8 Weeks: No - Immunization History Tetanus Immunization: >5 Years Medications and Allergies Active Medications: Active Medications Clonidine HCl (Catapres) 0.1 mg PO Q6H PRN PRN Reason: SBP>160, DBP>90 Divalproex Sodium (Depakote Dr) 500 mg PO BID [facility] Sodium Chloride (Ns Inj) 1,000 mls @ 125 mls/hr IV.CONT .Q8H [facility] Non-Formulary Medication (Levothyroxine [Levothyroxine]) 100 mcg PO DAILY [facility] Trazodone HCl (Desyrel) 50 mg PO [facility] Allergies Allergy/AdvReac Type Severity Reaction Status Date / Time No Known Allergies Allergy Severe Uncoded 10/19/09 12:18 Home Medications Medication Instructions Recorded Confirmed Type divalproex 500 mg PO BID 01/17/18 01/17/18 History levothyroxine 100 mcg PO DAILY 01/17/18 01/17/18 History trazodone 50 mg PO HS 01/17/18 01/17/18 History Exam Vital signs: Vital Signs 01/17/18 17:40 01/17/18 17:47 01/17/18 18:54 Temperature 99.2 F Pulse Rate 113 H 110 H Respiratory Rate 28 H 20 Blood Pressure 89/53 L 95/53 L Pulse Oximetry 94 L 95 96 01/17/18 22:15 Temperature 98.2 F Pulse Rate 89 Respiratory Rate 20 Blood Pressure 127/72 Pulse Oximetry 97 Intake & Output 01/17/18 01/17/18 01/18/18 06:59 18:59 06:59 Weight 113.398 kg Narrative: Gen.: No acute distress Head: Normocephalic. Atraumatic. EENT: Pupils equal round and reactive to light. Nose without drainage. Airway intact. Throat without injection. Cardiovascular: Regular rate and rhythm. No murmurs, rubs or gallops. Respiratory: Lungs clear to auscultation bilaterally. No wheezes or rhonchi. Abdomen: Soft, nontender, nondistended. No peritoneal signs. Musculoskeletal: No gross deformities. No edema. Skin: No obvious rashes or erythema. Neuro: Sensory and motor grossly intact. Cranial nerves II through XII grossly intact. Psych: Inappropriate insight and judgment with blunted affect Results - Labs CBC & Chem 7: 01/17/18 18:30 01/17/18 18:30 Labs: Laboratory Results - last 24 hr 01/17/18 01/17/18 01/17/18 18:30 18:30 18:30 WBC 19.5 H RBC 4.06 Hgb 10.6 L Hct 34.1 L MCV 83.9 MCH 26.1 L MCHC 31.1 L RDW 16.9 Plt Count 298 MPV 8.5 Neut % (Auto) 65.9 Lymph % (Auto) 21.4 [place] % (Auto) 7.6 Eos % (Auto) 4.4 H Baso % (Auto) 0.7 Neut # (Auto) 12.8 H Lymph # (Auto) 4.2 [place] # (Auto) 1.5 H Eos # (Auto) 0.9 H Baso # (Auto) 0.1 WBC Differential . Differential Comment Auto diff final Sodium 142 Potassium 3.6 Chloride 108 H Carbon Dioxide 11.1 L Anion Gap 23 H BUN 22 H Creatinine 2.36 H Estimated GFR 22 L POC Glucose 142 H Random Glucose 115 H Calcium 8.7 Magnesium 2.5 Total Bilirubin 0.2 AST 18 ALT 18 Alkaline Phosphatase 74 Troponin I Less than 0.02 L Total Protein 6.8 Albumin 3.0 L Urine Color Urine Clarity Urine pH Ur Specific [place] Urine Protein Urine Glucose (UA) Urine Ketones Urine Occult Blood Urine Nitrate Urine Bilirubin Urine Urobilinogen Ur Leukocyte Esterase Urine RBC Urine WBC Ur Squamous Epith Cells Micro UA Comment Urine Culture Comments Valproic Acid 01/17/18 01/17/18 18:30 21:10 WBC RBC Hgb Hct MCV MCH MCHC RDW Plt Count MPV Neut % (Auto) Lymph % (Auto) [place] % (Auto) Eos % (Auto) Baso % (Auto) Neut # (Auto) Lymph # (Auto) [place] # (Auto) Eos # (Auto) Baso # (Auto) WBC Differential Differential Comment Sodium Potassium Chloride Carbon Dioxide Anion Gap BUN Creatinine Estimated GFR POC Glucose Random Glucose Calcium Magnesium Total Bilirubin AST ALT Alkaline Phosphatase Troponin I Total Protein Albumin Urine Color Straw Urine Clarity Hazy H Urine pH 6.0 Ur Specific [place] 1.003 Urine Protein Negative Urine Glucose (UA) Negative Urine Ketones Negative Urine Occult Blood Small H Urine Nitrate Negative Urine Bilirubin Negative Urine Urobilinogen Less than 2 Ur Leukocyte Esterase Negative Urine RBC 1 Urine WBC 2 Ur Squamous Epith Cells 1 Micro UA Comment Culture not ind Urine Culture Comments Culture not ind Valproic Acid 47 L - Imaging Impressions Chest X-Ray 01/17/18 18:19 CONCLUSION: Probable basilar atelectasis. Exam limited by patient size. Pulmonary Perfusion Imaging 01/17/18 19:37 CONCLUSION: 1. Low probability for pulmonary embolus. Caprini VTE Risk Assessment Caprini VTE Risk Assessment: No/Low Risk (score <= 1) Caprini Risk Assessment Model: Point Value = 1 Point Value = 2 Point Value = 3 Point Value = 5 Age 41-60 Minor surgery BMI > 25 kg/m2 Swollen legs Varicose veins or History of unexplained or recurrent spontaneous Oral contraceptives or hormone replacement Sepsis (< 1 month) Serious lung disease, including pneumonia (< 1 month) Abnormal pulmonary function Acute myocardial infarction Congestive heart failure (< 1 month) History of inflammatory bowel disease Medical patient at bed rest Age 61-74 Arthroscopic surgery Major open surgery (> 45 min) Laparoscopic surgery (> 45 min) Malignancy Confined to bed (> 72 hours) Immobilizing plaster cast Central venous access Age >= 75 History of VTE Family history of VTE Factor V Leiden Prothrombin [id number] Lupus anticoagulant Anticardiolipin antibodies Elevated serum homocysteine Heparin-induced thrombocytopenia Other congenital or acquired thrombophilia Stroke (< 1 month) Elective arthroplasty Hip, pelvis, or leg fracture Acute spinal cord injury (< 1 month) Prophylaxis Regimen: Total Risk Factor Score Risk Level Prophylaxis Regimen 0-1 Low Early ambulation 2 Moderate Order ONE of the following: *Sequential Compression Device (SCD) *Heparin 5000 units SQ BID 3-4 Higher Order ONE of the following medications: *Heparin 5000 units SQ TID *Enoxaparin/Lovenox 40 mg SQ daily (WT < 150 kg, CrCl > 30 mL/min) *Enoxaparin/Lovenox 30 mg SQ daily (WT < 150 kg, CrCl > 10-29 mL/min) *Enoxaparin/Lovenox 30 mg SQ BID (WT < 150 kg, CrCl > 30 mL/min) AND/OR *Sequential Compression Device (SCD) 5 or more Highest Order ONE of the following medications: *Heparin 5000 units SQ TID (Preferred with Epidurals) *Enoxaparin/Lovenox 40 mg SQ daily (WT < 150 kg, CrCl > 30 mL/min) *Enoxaparin/Lovenox 30 mg SQ daily (WT < 150 kg, CrCl > 10-29 mL/min) *Enoxaparin/Lovenox 30 mg SQ BID (WT < 150 kg, CrCl > 30 mL/min) AND *Sequential Compression Device (SCD) Assessment and Plan - Plan Assessment/plan: 1. ? Syncope Unclear if patient lost consciousness or just fell Carotid ultrasound/echo pending ACS rule out pending VQ scan low probability of PE 2. AK I BUN/creatinine 22/2.36, baseline unknown IV fluid hydration Monitor renal function 3. Hypertension Patient not on any home antihypertensives Clonidine as needed 4. Hypothyroidism Continue home Synthroid 5. Depression/anxiety Continue home medications Psychiatry consulted as episode may have been related to psychiatric symptoms FEN Heart healthy diet Electrolytes: Monitor and replete as needed NS at 1 25 cc/hour
[2018-01-18] MEDS: Sod Chloride 0.9% Inj 1,000 ML IV.CONT SCH ×2 (01:59→10:26)
[2018-01-18] MEDS ORDERED: Acetaminophen 325 MG Tablet PO PRN (03:19)
[2018-01-18] MEDS ORDERED: Levothyroxine 100 MCG Tablet PO SCH (06:00)
--- NOTE | 2018-01-18 08:58 | P.PN ---
Subjective Interval history: Follow-up visit possible syncopal episode, hypothyroidism, HTN, anxiety disorder , schizoaffective disorder. Patient seen and examined today. Reports she is very anxious. States that her anxiety triggers her to have uncontrollable panic attacks that she passed out. States that she suspects that the medication that she is taking which is Depakote is causing her to have this. Discussed with patient that we are planning to give her hydroxyzine for her anxiety, patient asks "are you taking hydroxyzine, D you have anxiety?" Explained that she is the patient and that I don't have anxiety. States she does not know if she wants the medication or not. She continues to ask the medication ingredients which has been discussed and explained to her. Patient states that she continues to smoke and as I advised her to possibly quit smoking she all of a sudden becomes very angry and aggressive. States that she does not want to talk about it and that she would continues to smoke whenever she wants to. Denies SI/HI. Denies visual or auditory hallucinations. As per nursing, patient does not want to take her medications including Depakote this morning is very suspicious. Denies pain and discomfort. Denies SOB/ dyspnea. Denies chest pain, headaches, dizziness. Denies fevers, chills, n/v/d. Denies hematuria, dysuria. Physical Exam Vital signs: Vital Signs 01/17/18 17:40 01/17/18 17:47 01/17/18 18:54 Temperature 99.2 F Pulse Rate 113 H 110 H Respiratory Rate 28 H 20 Blood Pressure 89/53 L 95/53 L Pulse Oximetry 94 L 95 96 01/17/18 22:15 01/18/18 02:00 01/18/18 02:42 Temperature 98.2 F 98 F Pulse Rate 89 88 Respiratory Rate 20 20 Blood Pressure 127/72 126/72 Pulse Oximetry 97 94 L 01/18/18 02:52 01/18/18 04:00 01/18/18 08:00 Temperature 98.5 F 97.9 F 98.2 F Pulse Rate 79 74 77 Respiratory Rate 17 17 17 Blood Pressure 118/68 115/59 L 132/79 Pulse Oximetry 93 L 91 L 94 L Intake & Output 01/17/18 01/18/18 01/18/18 18:59 06:59 18:59 Weight 113.398 kg Narrative: GENERAL: This is a morbidly obese, well-developed patient, in no apparent distress. SKIN: Warm and dry. HEENT: Normocephalic. Pupils equal round and reactive. Nose without bleeding. Airway patent. NECK: Trachea midline. CARDIOVASCULAR: Regular rate and rhythm without murmurs, gallops, or rubs. RESPIRATORY: Diminished breath sounds. No wheezes, rales, or rhonchi. GASTROINTESTINAL: Abdomen soft, non-tender, nondistended. Bowel Sounds normoactive x4. MUSCULOSKELETAL: Extremities without clubbing, cyanosis, or edema. NEUROLOGICAL: Awake and alert. Oriented to place, person. Moves all extremities. Normal speech. Results - Labs CBC & Chem 7: 01/17/18 18:30 01/17/18 18:30 Laboratory Results - last 24 hr 01/17/18 01/17/18 01/17/18 18:30 18:30 18:30 WBC 19.5 H RBC 4.06 Hgb 10.6 L Hct 34.1 L MCV 83.9 MCH 26.1 L MCHC 31.1 L RDW 16.9 Plt Count 298 MPV 8.5 Neut % (Auto) 65.9 Lymph % (Auto) 21.4 [place] % (Auto) 7.6 Eos % (Auto) 4.4 H Baso % (Auto) 0.7 Neut # (Auto) 12.8 H Lymph # (Auto) 4.2 [place] # (Auto) 1.5 H Eos # (Auto) 0.9 H Baso # (Auto) 0.1 WBC Differential . Differential Comment Auto diff final Sodium 142 Potassium 3.6 Chloride 108 H Carbon Dioxide 11.1 L Anion Gap 23 H BUN 22 H Creatinine 2.36 H Estimated GFR 22 L POC Glucose 142 H Random Glucose 115 H Calcium 8.7 Magnesium 2.5 Total Bilirubin 0.2 AST 18 ALT 18 Alkaline Phosphatase 74 Troponin I Less than 0.02 L Total Protein 6.8 Albumin 3.0 L Urine Color Urine Clarity Urine pH Ur Specific Richards Urine Protein Urine Glucose (UA) Urine Ketones Urine Occult Blood Urine Nitrate Urine Bilirubin Urine Urobilinogen Ur Leukocyte Esterase Urine RBC Urine WBC Ur Squamous Epith Cells Micro UA Comment Urine Culture Comments Valproic Acid 01/17/18 01/17/18 01/18/18 18:30 21:10 01:35 WBC RBC Hgb Hct MCV MCH MCHC RDW Plt Count MPV Neut % (Auto) Lymph % (Auto) [place] % (Auto) Eos % (Auto) Baso % (Auto) Neut # (Auto) Lymph # (Auto) [place] # (Auto) Eos # (Auto) Baso # (Auto) WBC Differential Differential Comment Sodium Potassium Chloride Carbon Dioxide Anion Gap BUN Creatinine Estimated GFR POC Glucose Random Glucose Calcium Magnesium Total Bilirubin AST ALT Alkaline Phosphatase Troponin I Less than 0.02 L Total Protein Albumin Urine Color Straw Urine Clarity Hazy H Urine pH 6.0 Ur Specific Richards 1.003 Urine Protein Negative Urine Glucose (UA) Negative Urine Ketones Negative Urine Occult Blood Small H Urine Nitrate Negative Urine Bilirubin Negative Urine Urobilinogen Less than 2 Ur Leukocyte Esterase Negative Urine RBC 1 Urine WBC 2 Ur Squamous Epith Cells 1 Micro UA Comment Culture not ind Urine Culture Comments Culture not ind Valproic Acid 47 L 01/18/18 06:20 WBC RBC Hgb Hct MCV MCH MCHC RDW Plt Count MPV Neut % (Auto) Lymph % (Auto) [place] % (Auto) Eos % (Auto) Baso % (Auto) Neut # (Auto) Lymph # (Auto) [place] # (Auto) Eos # (Auto) Baso # (Auto) WBC Differential Differential Comment Sodium Potassium Chloride Carbon Dioxide Anion Gap BUN Creatinine Estimated GFR POC Glucose Random Glucose Calcium Magnesium Total Bilirubin AST ALT Alkaline Phosphatase Troponin I 0.16 H D Total Protein Albumin Urine Color Urine Clarity Urine pH Ur Specific Richards Urine Protein Urine Glucose (UA) Urine Ketones Urine Occult Blood Urine Nitrate Urine Bilirubin Urine Urobilinogen Ur Leukocyte Esterase Urine RBC Urine WBC Ur Squamous Epith Cells Micro UA Comment Urine Culture Comments Valproic Acid - Imaging Impressions Chest X-Ray 01/17/18 18:19 CONCLUSION: Probable basilar atelectasis. Exam limited by patient size. Pulmonary Perfusion Imaging 01/17/18 19:37 CONCLUSION: 1. Low probability for pulmonary embolus. Assessment and Plan - Plan 52-year-old female with a past medical history significant for hypertension and hypothyroidism presents to the emergency department for the evaluation of a possible syncopal episode. Questionable syncopal episode -Unclear if the patient lost consciousness or just fell. Patient explained that she was just anxious and is having panic attacks does not really have clear recollection of what had happened. -Suspect this is not a syncopal episode possibly severe anxiety attack. Patient is probably noncompliant with Depakote medication since she states that this is causing her to have increased anxiety -VQ scan with low probability of PE -3rd Troponin with slight elevation, Echocardiogram ordered. -EKG reviewed sinus rhythm with no ST changes. No change from previous tracings 3 -Carotid Doppler studies Negative examination for a hemodynamically significant carotid stenosis. -Patient is cleared to be evaluated by psychiatry. Will transfer to psychiatry unit for further evaluation. AK I, on possibly chronic kidney disease -BUN/creatinine 22/2.36, baseline unknown -IV fluid hydration, she refused IV fluids and refuse vascular access. Discussed and explained with patient but continues to be irritable -Monitor renal function -Enc PO fluids Hypertension -Patient not on any home antihypertensives -Clonidine as needed Hypothyroidism -Continue home Synthroid Depression/anxiety His affective disorder, paranoia -Continue home medications Depakote and trazodone until evaluated by psychiatry -Psychiatry consulted as episode may have been related to psychiatric symptoms DVT prop ambulatory Discharge patient to Medical-Pysch unit Condition on discharge: Improved Cardiac Diet as tolerated Ad Radha activity Rx written: In DC Plan Follow-up with primary care physician Code Status: Full code Discussed Condition With: Patient, nurse Discharge Planning: Plan to discharge to medical psych unit, will reorder echo follow-up with BMP.
[2018-01-18] MEDS ORDERED: Divalproex 500 MG DR Tablet PO SCH (09:00)
--- NOTE | 2018-01-18 09:07 | US ---
EXAM DATE: 01/18/2018 8:43 AM EDT AGE/SEX: 52 years / Female INDICATIONS: Syncope. CLINICAL DATA: This is the patient's initial encounter. Patient reports that signs and symptoms have been present for 1 day and indicates a pain score of 0/10. MEDICAL/SURGICAL HISTORY: Hypertension. Hypothyroidism. Anxiety. Depression. Insomnia. . COMPARISON: No prior exams available for comparison. VELOCITY PARAMETERS: ICA/CCA Ratio: Right 0.8 , Left 1.0 ICA: Right 72 cm/sec, Left 73 cm/sec CCA: Right 89 cm/sec, Left 74 cm/sec ECA: Right 61 cm/sec, Left 64 cm/sec Vertebral: Right 55 cm/sec antegrade, Left 22 cm/sec antegrade FINDINGS: Exam is limited by the patient's body habitus. RIGHT CAROTID: There is no evidence for a hemodynamically significant carotid stenosis. Minimal int imal hyperplasia is present with scattered calcific plaque. LEFT CAROTID: There is no evidence for a hemodynamically significant carotid stenosis. Minimal inti mal hyperplasia is present with scattered calcific plaque. Flow is antegrade in both vertebral arteries. There are no ancillary masses or adenopathy. CONCLUSION: Negative examination for a hemodynamically significant carotid stenosis. Luke Clay MD FACR Electronically signed by: Luke Clay MD 01/18/2018 9:06 AM EDT
--- NOTE | 2018-01-18 09:32 | ECG ---
Date Performed: 01/17/2018 Time Performed: 18:48:56 PTAGE: 52 years EKG: SINUS TACHYCARDIA ABNORMAL RHYTHM ECG NO PREVIOUS TRACING DOCTOR: Garcia Vaughan Interpretating Date/Time 01/18/2018 09:31:09
--- NOTE | 2018-01-18 09:44 | ECG ---
Date Performed: 01/18/2018 Time Performed: 06:00:11 PTAGE: 52 years EKG: Sinus rhythm NORMAL ECG Since the PREVIOUS TRACING , no significant change noted PREVIOUS TRACIN01/18/2018 00.46 DOCTOR: Garcia Vaughan Interpretating Date/Time 01/18/2018 09:43:16
--- NOTE | 2018-01-18 09:45 | ECG ---
Date Performed: 01/18/2018 Time Performed: 00:46:45 PTAGE: 52 years EKG: Sinus rhythm NORMAL ECG Since the PREVIOUS TRACING , no significant change noted PREVIOUS TRACIN01/17/2018 18.48 DOCTOR: Garcia Vaughan Interpretating Date/Time 01/18/2018 09:43:24
--- NOTE | 2018-01-18 14:44 | P.CONPSY ---
Provisional Diagnosis Admission Date: January 17, 2018 23:09 [place] I.: Schizophrenia [place] II.: Deferred [place] III.: Hypothyroidism, Hypertension, obesity History of Present Illness Service: Medicine Primary Care Provider: No Primary Care Physician Chief Complaint: Anxiety, syncope History of Present Illness: The patient is The patient is a 52-year-old woman, domiciled in [place] , single, unemployed, supported by [facility], with psychiatric history of schizophrenia, multiple psychiatric hospitalizations, multiple suicide attempts , she has been hospitalized in [place] before, the recommendation reviewed, I had no being able to confirm her medication regimen at this moment, but I spoke with [place] global compensation manager and they are investigating at this moment because the patient was recently discharged from the medical hospitalization for the hospital, she is in Depakote 500 mg twice daily, trazodone 100 mg at bedtime, she is also in an antipsychotic, but the brand has not been confirmed, with, past medical history significant for hypertension and hypothyroidism presents to the emergency department for the evaluation of a possible syncopal episode. The patient reports that she was walking down the street when she started having an anxiety attack. She reports that she fell in the street on the sidewalk and then again in her neighbor's yard. She is not sure if she lost consciousness. She denies any loss of bowel or bladder. The patient reports that the anxiety stems from a fear of her surround she states that these episodes routinely happen. She denies any chest pain or shortness of breath. No abdominal pain. No nausea/vomiting/diarrhea. No heart palpitations. No fever/chills. No lateralizing signs/symptoms. Consulted to psychiatry to address acute psychosis, restlessness, medication regimen adjustment. EMR was reviewed. The case was widely discussed with primary medical team. On my psychiatric evaluation the patient is found in her room, she is guarded, initially poorly cooperative, visibly paranoid. She reports that she is not here to see psychiatry she is here to take care of her . She says that she is of twins "but I had not have any sex in the last 2 years". She reports that she does not trust the staff of the hospital, "they are watching me by the camera and through this machine" pointing at the IV pole. The patient has a prominent flat affect, she is internally preoccupied at the same time is quite restless. The patient is moving her legs constantly during the evaluation. She has a very poor insight of her psychosis, she says that she does not suffer with schizophrenia, just depression. She is fully oriented 3, without no fluctuation of consciousness, no attention deficit, no gross cognitive impairment present. She denies the use of illegal drugs or alcohol. I Review of Systems Comments: Akathisia Psychiatric: Reports anxiety, Reports behavioral changes, Reports irritability, Reports mood swings, Reports paranoia PMFSH - History History Provided By: Patient - Medical History Medical History: Medical History (Last Updated 01/18/18 @ 00:22 by Ping Garcia MD) HTN (hypertension) Hypothyroidism Anxiety Depression Insomnia - Surgical History Surgical History: Surgical History (Last Updated 01/17/18 @ 19:47 by GIANCARLO Singletary) No history of previous surgery - Family History Family History: Family History (Last Updated 01/18/18 @ 14:35 by Oscar Zimmer MD) Sister No family history of coronary artery disease Other Bipolar disorder - Tobacco History Second Hand Smoke Exposure: Yes Tobacco Use In Past 30 Days: Yes Smoking Status: Heavy tobacco smoker Tobacco Type: Cigarettes - Alcohol History How Often Do You Have a Drink Containing Alcohol: Never - Substance Use History Substance History: No History of Abuse - Travel History Recent Travel in the [place] Within the Last 8 Weeks: No Recent Travel Out of the Country Within the Last 8 Weeks: No - Immunization History Tetanus Immunization: >5 Years Medications and Allergies Active Medications: Active Medications Acetaminophen (Tylenol) 650 mg PO Q4H PRN PRN Reason: Pain 1 - 10/temp > 100.4 Clonidine HCl (Catapres) 0.1 mg PO Q6H PRN PRN Reason: SBP>160, DBP>90 Divalproex Sodium (Depakote Dr) 500 mg PO BID [facility] Last Admin: 01/18/18 10:26 Dose: Not Given Hydroxyzine HCl (Atarax) 25 mg PO Q6H PRN PRN Reason: ANXIETY Sodium Chloride (Ns Inj) 1,000 mls @ 125 mls/hr IV.CONT .Q8H [facility] Last Admin: 01/18/18 10:26 Dose: 125 mls/hr Levothyroxine Sodium (Synthroid) 100 mcg PO DAILY@0600 [facility] Last Admin: 01/18/18 05:18 Dose: Not Given Trazodone HCl (Desyrel) 50 mg PO [facility] Allergies Allergy/AdvReac Type Severity Reaction Status Date / Time No Known Allergies Allergy Severe Uncoded 10/19/09 12:18 Home Medications Medication Instructions Recorded Confirmed Type divalproex 500 mg PO BID 01/17/18 01/17/18 History levothyroxine 100 mcg PO DAILY 01/17/18 01/17/18 History trazodone 50 mg PO HS 01/17/18 01/17/18 History Exam Vital signs: Vital Signs 01/17/18 17:40 01/17/18 17:47 01/17/18 18:54 Temperature 99.2 F Pulse Rate 113 H 110 H Respiratory Rate 28 H 20 Blood Pressure 89/53 L 95/53 L Pulse Oximetry 94 L 95 96 01/17/18 22:15 01/18/18 02:00 01/18/18 02:42 Temperature 98.2 F 98 F Pulse Rate 89 88 Respiratory Rate 20 20 Blood Pressure 127/72 126/72 Pulse Oximetry 97 94 L 01/18/18 02:52 01/18/18 04:00 01/18/18 08:00 Temperature 98.5 F 97.9 F 98.2 F Pulse Rate 79 74 77 Respiratory Rate 17 17 17 Blood Pressure 118/68 115/59 L 132/79 Pulse Oximetry 93 L 91 L 94 L 01/18/18 11:38 Temperature 98.7 F Pulse Rate 75 Respiratory Rate 19 Blood Pressure 157/81 H Pulse Oximetry 94 L Intake & Output 01/17/18 01/18/18 01/18/18 18:59 06:59 18:59 Intake Total 1000 / 1000 Balance 1000 / 1000 Weight 113.398 kg Intake: IV 1000 / 1000 NS Inj 1,000 ML @ 125 mls/hr IV 1000 / 1000 .CONT .Q8H [facility] Rx#:[id number] Mental Status Examination Appearance: Dirty Consciousness: Alert Orientation: x4 Motor Activity: Other Speech: Rapid (Hyperactive) Language: Adequate Fund of Knowledge: Adequate Attention and Concentration: Easily distracted Memory: Unremarkable Mood: Angry Affect: Irritable Thought Process & Associations: Disorganized Thought Content: Bizarre thinking, Delusional Delusion Type: Bizarre, Paranoid Suicidal Ideation: No Suicidal Plan: No Suicidal Intention: No Homicidal Ideation: No Homicidal Plan: No Homicidal Intention: No Insight: Poor Judgment: Poor Assessment and Plan - Assessment (1) Schizophrenia Code(s): F20.9 - Schizophrenia, unspecified Status: Acute - Plan Plan: Estimated LOS: [] days Psychiatric evaluation today the patient presents quite disorganized, restless, hyperactive, poorly cooperative and quite guarded, internally preoccupied and paranoid. The patient has marked paranoia of people trying to hurt her in the hospital, ideas of reference of TV and electronic devices in the room communicated with her, also she has the delusion of being . She also presents with a prominent restlessness, anxiety and lower extremity involuntary movements which suggest akathisia. According with the medication reconciliation in EMR the patient is in Depakote 500 mg twice daily and trazodone 100 mg and not in an antipsychotic, but I have a conversation with the global compensation manager of [facility] and the patient has being in high doses of Haldol, but this information would be confirmed later. Given the level of psychosis and akathisia the patient would be admitted in psychiatry for stabilization and safety. We will start Depakote 500 mg twice daily, trazodone 100 mg, propanolol 10 mg 3 times daily for akathisia. Will contact [place] again to confirm antipsychotic medications. Transfer to psychiatry once medically stable Justification for Continued Inpatient Stay: To be admitted in psychiatry
[2018-01-18] MEDS ORDERED: Propranolol 10 MG Tablet PO SCH (18:00)
[2018-01-18] MEDS ORDERED: traZODone 50 MG Tablet PO SCH (21:00)
== END 2018-01-18 17:33 ==
LOC: NEDA 17:27 → NEPC 17:27 → NEPGCP 17:27
PROVIDERS: ADMIT Family Medicine; ATTEND Family Medicine
DX: D72.829 Elevated white blood cell count, unspecified; R06.02 Shortness of breath; Z79.899 Other long term (current) drug therapy; R61 Generalized hyperhidrosis; G25.71 Drug induced akathisia; R00.0 Tachycardia, unspecified; Z91.14 Patient's other noncompliance with medication regimen; F20.9 Schizophrenia, unspecified; I10 Essential (primary) hypertension; G47.00 Insomnia, unspecified; R55 Syncope and collapse; I95.9 Hypotension, unspecified; N28.9 Disorder of kidney and ureter, unspecified; E03.9 Hypothyroidism, unspecified; R06.00 Dyspnea, unspecified; F41.0 Panic disorder [episodic paroxysmal anxiety]; F17.210 Nicotine dependence, cigarettes, uncomplicated

== ENCOUNTER 2018-01-18 16:17 | Inpatient (IN) ==
[2018-01-18] MEDS ORDERED: Aluminum/Magnesium/Simethacone Susp 30 ML UDC PO PRN (22:06)
[2018-01-19] MEDS ORDERED: traZODone 50 MG Tablet PO ONE (01:30)
[2018-01-19] MEDS: Levothyroxine 100 MCG Tablet PO SCH (06:00)
[2018-01-19] MEDS: Divalproex 500 MG DR Tablet PO SCH ×2 (09:13→21:11)
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
[2018-01-19 12:36] LABS: Calcium 9.7 mg/dL (8.5-10.1); Carbon Dioxide 28.1 meq/L (21.0-32.0); Chol/HDL Ratio 7.38 Ratio; Potassium 4.5 meq/L (3.5-5.1)
[2018-01-19 16:05] LABS: Hemoglobin A1c 6.3 % (4.3-6.0)
[2018-01-19] MEDS ORDERED: Propranolol 10 MG Tablet PO SCH (18:00)
--- NOTE | 2018-01-19 18:46 | P.CON ---
History of Present Illness Service: 01/19/18 Consult date: 01/19/18 Requesting Physician: Garcia Dior Reason for Consult: continue to follow from medical floor Primary Care Provider: No Primary Care Physician History of Present Illness: 52-year-old female with a past medical history significant for hypertension and hypothyroidism who presented to emergency department on 01/17 for possible syncopal episode. Patient with significant history of anxiety attacks, workup with VQ scan with low probability of PE, serial troponins with slight elevation with highest 0.16. Patient had serial EKGs with no acute changes or concerns for acute NM. Carotid ultrasound negative. No identifiable cause for syncopal episode. KEON with possible CKD, patient refused IV hydration. Patient was cleared medically and discharged to inpatient psychiatry for further evaluation and treatment. [facility] consulted to assist with ongoing follow-up since she was transferred from medical floor. Spoke with nurse reports patient has been eating and drinking meals without any complaints or concerns. No reports of syncopal episodes or events overnight or this morning. Patient has been intermittently refusing medications per nurse. Patient is seen and examined sitting in the day room and appears to be in no acute distress. She denies any fevers, chills, nausea, vomiting, diarrhea, constipation, cough, shortness of breath, chest pain, dizziness or lightheadedness. Patient reports that she is eating and drinking without any issues, urinating without dysuria or hematuria. She reports that she will be going home tomorrow around noon. [facility] - History History Provided By: Patient - Medical History Medical History: Medical History (Last Updated 01/18/18 @ 00:22 by Ping Garcia MD) HTN (hypertension) Hypothyroidism Anxiety Depression Insomnia - Surgical History Surgical History: Surgical History (Last Updated 01/17/18 @ 19:47 by GIANCARLO Singletary) No history of previous surgery - Family History Family History: Family History (Last Updated 01/18/18 @ 14:35 by Oscar Zimmer MD) Sister No family history of coronary artery disease Other Bipolar disorder - Tobacco History Second Hand Smoke Exposure: Yes Tobacco Use In Past 30 Days: Yes Smoking Status: Current every day smoker Tobacco Type: Cigarettes - Alcohol History How Often Do You Have a Drink Containing Alcohol: Monthly or less - Substance Use History Substance History: No History of Abuse Medications and Allergies Active Medications: Active Medications Al Hydrox/Mg Hydrox/Simethicone (Mag-Al Plus Susp Liq) 30 ml PO Q6H PRN PRN Reason: DYSPEPSIA Al Hydroxide/Mg Hydroxide (Milk Of Magnesia Liq) 30 ml PO Q12H PRN PRN Reason: Mild Constipation Clonidine HCl (Catapres) 0.1 mg PO Q8HR PRN PRN Reason: SBP>180 or DBP>100 Divalproex Sodium (Depakote Dr) 500 mg PO BID [facility] Last Admin: 01/19/18 09:13 Dose: 500 mg Fluoxetine HCl (Prozac) 20 mg PO DAILY [facility] Haloperidol (Haldol) 5 mg PO BID [facility] Hydroxyzine HCl (Atarax) 25 mg PO Q6H PRN PRN Reason: ANXIETY Levothyroxine Sodium (Synthroid) 100 mcg PO DAILY@0600 [facility] Last Admin: 01/19/18 06:00 Dose: Not Given Propranolol HCl (Inderal) 10 mg PO TID [facility] Trazodone HCl (Desyrel) 50 mg PO HS PRN PRN Reason: Insomnia Allergies Allergy/AdvReac Type Severity Reaction Status Date / Time No Known Allergies Allergy Severe Uncoded 10/19/09 12:18 Home Medications Medication Instructions Recorded Confirmed Type divalproex 500 mg PO BID 01/17/18 01/17/18 History levothyroxine 100 mcg PO DAILY 01/17/18 01/17/18 History trazodone 50 mg PO HS 01/17/18 01/17/18 History Physical Exam Vital signs: Vital Signs 01/19/18 05:40 01/19/18 17:10 Temperature 36.3 C L Pulse Rate 82 69 Respiratory Rate 16 Blood Pressure 138/86 160/93 H Pulse Oximetry 94 L Intake & Output 01/18/18 01/19/18 01/19/18 18:59 06:59 18:59 Weight 121.3 kg 121.3 kg Other: Weight On Admission 121.3 kg Narrative: GENERAL: This is a morbidly obese, well-developed patient, in no apparent distress. SKIN: Warm and dry. HEENT: Normocephalic. Pupils equal round and reactive. Nose without bleeding. Airway patent. NECK: Trachea midline. CARDIOVASCULAR: Regular rate and rhythm without murmurs, gallops, or rubs. RESPIRATORY: Diminished breath sounds. No wheezes, rales, or rhonchi. GASTROINTESTINAL: Abdomen soft, non-tender, nondistended. Bowel Sounds normoactive x4. MUSCULOSKELETAL: Extremities without clubbing, cyanosis, or edema. NEUROLOGICAL: Awake and alert. No obvious cranial nerve deficits noted. Moves all extremities. Normal speech. Assessment and Plan - Plan 52-year-old female with a past medical history significant for hypertension and hypothyroidism who presented to emergency department on 01/17 for possible syncopal episode. Patient with significant history of anxiety attacks, workup with VQ scan with low probability of PE, serial troponins with slight elevation with highest 0.16. Patient had serial EKGs with no acute changes or concerns for acute NM. Carotid ultrasound negative. No identifiable cause for syncopal episode. KEON with possible CKD, patient refused IV hydration. Patient was cleared medically and discharged to inpatient psychiatry for further evaluation and treatment. [facility] consulted to assist with ongoing follow-up since she was transferred from medical floor. Depression/anxiety His affective disorder, paranoia -Treatment plan per psychiatry, greatly appreciated. KEON with possible CKD -BUN/creatinine 22/2.36, BMP this morning reviewed, creatinine 1.96, BUN 22 -Patient continues to refuse IV hydration, continue encouraging oral intake, monitor renal function as patient allows Hypertension -Patient not on any home antihypertensives -Clonidine as needed Hypothyroidism -Continue home Synthroid DVT prophylaxis-ambulating Thank you kindly for this consultation, will continue to follow. Discussed Condition With: Patient and nurse.
[2018-01-19] MEDS ORDERED: traZODone 50 MG Tablet PO PRN (21:00)
[2018-01-19] MEDS: Haloperidol 5 MG Tablet PO SCH (21:12)
[2018-01-20] MEDS: Levothyroxine 100 MCG Tablet PO SCH (06:33)
[2018-01-20] MEDS: Haloperidol 5 MG Tablet PO SCH (08:25)
[2018-01-20] MEDS: Divalproex 500 MG DR Tablet PO SCH (08:25)
[2018-01-20] MEDS ORDERED: FLUoxetine 20 MG Capsule PO SCH (09:00)
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
[2018-01-20] MEDS ORDERED: amLODIPine 5 MG Tablet PO SCH (15:00)
== END 2018-01-20 16:00 | disposition left against medical advice (07) ==
LOC: H260 17:39 → H270 18:45
PROVIDERS: ADMIT Psychiatry & Neurology Psychiatry; ATTEND Psychiatry & Neurology Psychiatry

== ENCOUNTER 2018-01-25 21:32 | Inpatient (IN) ==
[2018-01-26 04:30] LABS: Baso # (Auto) 0.1 th/mm3 (0.0-0.2); Baso % (Auto) 0.9 % (0.0-2.0); Eos # (Auto) 0.7 th/mm3 (0.0-0.4); Eos % (Auto) 7.4 % (0.0-4.0); Hematocrit 32.8 % (35.0-46.0); Hemoglobin 10.5 gm/dL (11.6-15.3); Lymph # (Auto) 2.7 th/mm3 (1.0-4.8); Lymph % (Auto) 28.6 % (9.0-44.0); Mean Corpuscular HGB Conc 32.1 % (32.0-36.0); Mean Corpuscular Hemoglobin 26.6 pg (27.0-34.0); Mean Corpuscular Volume 82.9 fL (80.0-100.0); Mean Platelet Volume 7.9 fL (7.0-11.0); Mono % (Auto) 10.7 % (0.0-8.0); Neut % (Auto) 52.4 % (16.0-70.0); Platelet Count 251 th/mm3 (150-450); Red Blood Count 3.96 mil/mm3 (4.00-5.30); Red Cell Distribution Width 17.1 % (11.6-17.2); White Blood Count 9.5 th/mm3 (4.0-11.0)
[2018-01-26 04:54] LABS: Alanine Aminotransferase 20 U/L (10-53); Albumin 3.1 g/dL (3.4-5.0); Anion Gap 12 meq/L (5-15); Aspartate Aminotransferase 18 U/L (15-37); Blood Urea Nitrogen 25 mg/dL (7-18); Calcium 8.9 mg/dL (8.5-10.1); Carbon Dioxide 21.1 meq/L (21.0-32.0); Chloride 107 meq/L (98-107); Glomerular Filtration Rate 24 mL/min (>89); Glucose,Random 127 mg/dL (74-106); Potassium 4.2 meq/L (3.5-5.1); Sodium 140 meq/L (136-145)
[2018-01-26 05:04] LABS: Alkaline Phosphatase 73 U/L (45-117); Total Protein 7.1 g/dL (6.4-8.2)
--- NOTE | 2018-01-26 06:14 | ED ---
HPI General Chief complaint: Psychiatric Symptoms Stated complaint: Vol psych eval Time Seen by Provider: 01/26/18 03:33 Source: patient Mode of arrival: ambulatory Limitations: no limitations History of Present Illness HPI narrative: 52-year-old white female with a history of depression, and schizoaffective disorder presents on a voluntary basis for psychological evaluation. [facility]. She states that she would like to be admitted for 1 week. She has had some thoughts of self-harm but has no current plan. Patient is a very poor historian. She is very vague as her history is obtained. She states that she has been taking her medications. She does drink alcohol on a rare occasion. She does smoke cigarettes but denies any drugs. Symptoms are moderate. Unsure of any exacerbating activity. No alleviating factors. Related Data Previous Rx's Medication Instructions Recorded divalproex 500 mg PO BID 15 Days #30 tab 01/20/18 fluoxetine 20 mg PO DAILY 15 Days #15 cap 01/20/18 haloperidol 5 mg PO BID 15 Days #30 tab 01/20/18 levothyroxine [Synthroid] 100 mcg PO DAILY@0600 15 Days tab 01/20/18 propranolol 10 mg PO TID 15 Days #45 tab 01/20/18 trazodone 50 mg PO HS 15 Days #15 tab 01/20/18 Allergies Allergy/AdvReac Type Severity Reaction Status Date / Time No Known Allergies Allergy Verified 01/25/18 23:06 Pediatric Review of Systems All systems: reviewed and negative except as stated Psychiatric: Reports as per HPI and suicidal ideation; Denies change in energy level, fussiness, angry/aggressive behavior and homicidal ideation PMFSH Medical History Medical History Anemia (Acute) Chronic renal disease (Acute) HTN (hypertension) (Acute) Hypothyroidism (Acute) Anxiety (Chronic) Depression (Chronic) Insomnia (Chronic) Surgical History Surgical History No history of previous surgery (Chronic) Family History Family History Sister No family history of coronary artery disease Other Bipolar disorder Social History Social History Smoking Status: Current every day smoker How Often Do You Have a Drink Containing Alcohol: Monthly or less Recent Travel in [facility] within the Last 8 Weeks: No Recent Out of Country Travel within the Last 8 Weeks: No Immunization History Tetanus Immunization: <5 Years Hx Influenza Vaccine This Season: No Pediatric Exam GENERAL: Well-nourished, well-developed patient. SKIN: Warm and dry. HEAD: Normocephalic and atraumatic. EYES: No scleral icterus. No injection or drainage. ENT: No nasal drainage noted. Mucous membranes pink. Airway patent. NECK: Supple, trachea midline. Moves head freely without obvious discomfort. CARDIOVASCULAR: Regular rate and rhythm without murmurs, gallops, or rubs. RESPIRATORY: Breath sounds equal bilaterally. No accessory muscle use. GASTROINTESTINAL: Abdomen soft, non-tender, nondistended. EXTREMITIES: No cyanosis or edema. BACK: Nontender without obvious deformity. No CVA tenderness. NEURO: Patient is alert and oriented. no sensorimotor deficits. Nonfocal. Normal speech. PSYCH: No delusions. No auditory or visual hallucinations. Course Hospital Course: Patient has been medically cleared. The patient has been seen by the psych screener. He has requested that the patient stay in the ER and be evaluated by the psychiatrist in the morning. Initial Documented Vital Signs Temperature 99.2 F 01/25/18 23:00 Pulse Rate 76 01/25/18 23:00 Respiratory Rate 18 01/25/18 23:00 Blood Pressure 120/77 01/25/18 23:00 Pulse Oximetry 98 01/25/18 23:00 Last Documented Vital Signs Temperature 98.3 F 01/26/18 03:07 Pulse Rate 77 01/26/18 03:07 Respiratory Rate 20 01/26/18 03:07 Blood Pressure 129/75 01/26/18 03:07 Pulse Oximetry 98 01/26/18 03:07 Sign Out Sign Out Data: Patient Sign Out occurred on 01/26/18 at 09:30. Patient's care was discussed, and care was transferred from ALMA Park to ALMA Khan. Sign Out Comment: Case discussed with robby MARQUEZ. Last updated by Husam Rinaldi PA at 01/26/18 07:23 Medical Decision Making Lab Data Result diagrams: 01/26/18 04:10 01/26/18 04:10 Lab Results 01/26/18 01/26/18 Range/Units 04:10 04:10 WBC 9.5 (4.0-11.0) th/mm3 RBC 3.96 L (4.00-5.30) mil/mm3 Hgb 10.5 L (11.6-15.3) gm/dL Hct 32.8 L (35.0-46.0) % MCV 82.9 (80.0-100.0) fL MCH 26.6 L (27.0-34.0) pg MCHC 32.1 (32.0-36.0) % RDW 17.1 (11.6-17.2) % Plt Count 251 (150-450) th/mm3 MPV 7.9 (7.0-11.0) fL Neut % (Auto) 52.4 (16.0-70.0) % Lymph % (Auto) 28.6 (9.0-44.0) % Hart % (Auto) 10.7 H (0.0-8.0) % Eos % (Auto) 7.4 H (0.0-4.0) % Baso % (Auto) 0.9 (0.0-2.0) % Neut # (Auto) 5.0 (1.8-7.7) th/mm3 Lymph # (Auto) 2.7 (1.0-4.8) th/mm3 Hart # (Auto) 1.0 H (0.0-0.9) th/mm3 Eos # (Auto) 0.7 H (0.0-0.4) th/mm3 Baso # (Auto) 0.1 (0.0-0.2) th/mm3 WBC Differential . Differential Comment Auto diff final Sodium 140 (136-145) meq/L Potassium 4.2 (3.5-5.1) meq/L Chloride 107 (98-107) meq/L Carbon Dioxide 21.1 (21.0-32.0) meq/L Anion Gap 12 (5-15) meq/L BUN 25 H (7-18) mg/dL Creatinine 2.21 H (0.50-1.00) mg/dL Estimated GFR 24 L (>89) mL/min Random Glucose 127 H (74-106) mg/dL Calcium 8.9 (8.5-10.1) mg/dL Total Bilirubin 0.1 L (0.2-1.0) mg/dL AST 18 (15-37) U/L ALT 20 (10-53) U/L Alkaline Phosphatase 73 (45-117) U/L Total Protein 7.1 (6.4-8.2) g/dL Albumin 3.1 L (3.4-5.0) g/dL TSH 23.000 H (0.358-3.740) uIU/mL Serum Alcohol Less than 3 (0-5) mg/dL Discharge Plan Discharge Disposition Patient Disposition: 01 Discharge Home Physicians Team ED Provider: Valeria Blair ED Midlevel Provider: Husam Rinaldi Primary Care Provider: Primary Care Milagro Garcia Attending Provider: Garcia Dior [facility] ; Cameron Ambrosio Ginny Discharge Interventions Interventions: ED Discharge Assessment Last Done: 01/28/18 12:29 Vital Signs Last Done: 01/28/18 12:29 Status ED Status: Left Department Discharge Information Discharge Date/Time: 01/28/18 12:45 Addendum entered and electronically signed by ALMA Khan 02/11/18 07:34 : Patient remained stable while waiting to be seen by psych. Case management involved for placement. Stable for outpatient follow-up.
[2018-01-26 06:25] LABS: Amphetamine Screen,Urine Neg (Neg); Barbiturate Screen,Urine Neg (Neg); Cannabinoid Screen,Urine Neg (Neg); Cocaine Screen,Urine Neg (Neg)
[2018-01-26 06:26] LABS: Opiate Screen,Urine Neg (Neg)
[2018-01-26] MEDS ORDERED: Aluminum/Magnesium/Simethacone Susp 30 ML UDC PO PRN (17:37)
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
[2018-01-26] MEDS ORDERED: Haloperidol Inj 5 MG/ML Ampul IM ONE (21:19)
--- NOTE | 2018-01-27 18:45 | P.PNPSY ---
Subjective Chief Complaint: Patient is a 52-year-old female who was recently discharged from [facility]. She was sent to us from [place] due to behavioral problems. Case discussed with Dr. Gifford. Will order Haldol 10 mg p.o. twice daily and trazodone 50 qhs. We will continue to monitor behavior and psychiatrist will make a decision tomorrow regarding her disposition. Remarks: Disposition pending Review of Systems All other systems reviewed negative except as stated in HPI Mental Status Examination Appearance: Appropriate Consciousness: Alert Orientation: x4 Motor Activity: Normal gait Speech: Unremarkable Language: Adequate Fund of Knowledge: Adequate Attention and Concentration: Easily distracted Memory: Unremarkable Mood: Angry Affect: Blunt Thought Process & Associations: Tangential Thought Content: Appropriate Hallucination Type: None Delusion Type: None Suicidal Ideation: No Suicidal Plan: No Suicidal Intention: No Homicidal Ideation: No Homicidal Plan: No Homicidal Intention: No Insight: Fair Judgment: Impulsive Assessment and Plan - Assessment (1) Adjustment disorder Code(s): F43.20 - Adjustment disorder, unspecified Status: Acute - Plan Plan: Estimated LOS: [] days Patient will be given her medications this evening. Behavior will be monitored.. Case discussed with Dr. Gifford. Psychiatrist will evaluate patient morning and make disposition. Justification for Continued Inpatient Stay: Behavior will be monitored. (1) Adjustment disorder Qualifiers: Adjustment disorder type: with conduct disturbance Qualified Code(s): F43.24 - Adjustment disorder with disturbance of conduct
[2018-01-27] MEDS ORDERED: traZODone 50 MG Tablet PO SCH (21:00)
[2018-01-28] MEDS: Propranolol 10 MG Tablet PO SCH (19:18)
[2018-01-29] MEDS ORDERED: Divalproex 500 MG DR Tablet PO SCH (09:00)
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
[2018-01-29] MEDS: Propranolol 10 MG Tablet PO SCH (17:00)
[2018-01-30] MEDS ORDERED: Levothyroxine 100 MCG Tablet PO SCH (06:00)
[2018-01-30] MEDS: Propranolol 10 MG Tablet PO SCH ×3 (12:09→17:22)
--- NOTE | 2018-01-30 14:41 | P.PN ---
Subjective Interval history: Patient is seen while eating lunch. She tells me that she is doing well -her only concern is whether or not she is getting enough carbohydrates in her lunch. Denies chest pain or shortness of breath. Denies nausea vomiting or diarrhea. Reports normal urination and no constipation. She appears to be a very poor historian. Physical Exam Vital signs: Vital Signs 01/29/18 18:15 01/30/18 06:06 Temperature 97.8 F 98.7 F Pulse Rate 76 79 Respiratory Rate 18 16 Blood Pressure 128/71 126/81 Pulse Oximetry 97 98 Narrative: GENERAL: Obese, well-developed adult female in no obvious distress. SKIN: Warm and dry. HEAD: Atraumatic. Normocephalic. CARDIOVASCULAR: Regular rate and rhythm. RESPIRATORY: No accessory muscle use. Clear to auscultation. Breath sounds equal bilaterally. GASTROINTESTINAL: Abdomen soft, non-tender, non-distended. Positive bowel sounds. MUSCULOSKELETAL: Extremities without clubbing, cyanosis, or edema. No obvious deformities. NEUROLOGICAL: Awake and alert. No obvious cranial nerve deficits. Motor grossly within normal limits. Normal speech. PSYCHIATRIC: Appropriate mood and affect; insight and judgment poor. Results - Labs CBC & Chem 7: 01/26/18 04:10 01/26/18 04:10 Assessment and Plan - Plan Depression Pt came to the hospital voluntarily as she was kicked out of her [facility]. - management per psychiatry. Hypothyroidism TSH noted to be 23. - increase levothyroxine from 100 mcg daily to 125 mcg daily. - repeat TSH in 2-3 weeks (on or around 2 week of January). Chronic renal disease Creatinine appears to have been over 2 since July. May be new baseline. Unsure of prior baseline. Creatinine was normal in 2009. - avoid nephrotoxic agents. - encourage free fluids. - repeat BMP pending -patient refused lab draw 01/29; reordered. Anemia Likely s/t renal disease. - follow CBC. - check iron studies, B12, folate levels -patient refused lab draw 01/29; reordered. HTN On propranolol as an outpt. - continue propranolol. PPx: Ambulation Discussed with: Patient and nurse
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
[2018-01-31] MEDS: Propranolol 10 MG Tablet PO SCH ×3 (08:47→18:26)
[2018-01-31] MEDS: FLUoxetine 20 MG Capsule PO SCH (14:45)
--- NOTE | 2018-01-31 14:49 | P.PNPSY ---
Subjective Chief Complaint: Psychosis Remarks: Reviewed electronic medical records and discussed case with staff. Follow-up was conducted in short hallway with nurse present. Patient is waiting to go to visitation with her mother. Her nurse reports that she has had no behaviors today. The patient advises that she has been sleeping well and has a good appetite. Questioned her about her medications and she stated that she would be willing to take her Prozac and her trazodone. I have obtained signed consent for those medications and they are currently ordered. There is no indication of internal stimulation or thought blocking. Her mood is good her affect is flat. She is anxious to visit with her mother. Mental Status Examination Appearance: Appropriate Consciousness: Alert Orientation: x4 Motor Activity: Normal gait Speech: Unremarkable Language: Adequate Fund of Knowledge: Adequate Attention and Concentration: Easily distracted Memory: Impaired (Psychosis interferes) Mood: Good Affect: Blunt (Inappropriate) Thought Process & Associations: Tangential (At times disorganized) Thought Content: Appropriate Hallucination Type: Other (Internally stimulated) Delusion Type: Paranoid Suicidal Ideation: No (Unreliable to contract for safety) Suicidal Plan: No Suicidal Intention: No Homicidal Ideation: No (Unreliable to contract for safety) Homicidal Plan: No Homicidal Intention: No Insight: Poor Judgment: Poor Assessment and Plan - Assessment (1) Adjustment disorder Code(s): F43.20 - Adjustment disorder, unspecified Status: Acute - Plan Plan: Patient will be reevaluated tomorrow by the attending psychiatrist. Continue with current treatment plan. Justification for Continued Inpatient Stay: Moving this patient to a less restrictive environment would likely result in decompensation. Placement is being sought. (1) Adjustment disorder Qualifiers: Adjustment disorder type: with conduct disturbance Qualified Code(s): F43.24 - Adjustment disorder with disturbance of conduct
--- NOTE | 2018-01-31 15:28 | P.PN ---
Subjective Interval history: Patient is seen sitting in break room eating lunch. She tells me everything is fine however her expression is very flat she makes limited eye contact. She has refused her labs because she does not want anyone "taking her blood". Attempted education however she is adamant. Answers all other questions with "fine" or "okay". Physical Exam Vital signs: Vital Signs 01/30/18 18:05 01/31/18 05:35 Temperature 98.7 F 98.2 F Pulse Rate 83 82 Respiratory Rate 18 Blood Pressure 115/85 118/72 Pulse Oximetry 97 98 Narrative: GENERAL: Obese, well-developed adult female in no obvious distress. SKIN: Warm and dry. HEAD: Atraumatic. Normocephalic. CARDIOVASCULAR: Regular rate and rhythm. RESPIRATORY: No accessory muscle use. Clear to auscultation. Breath sounds equal bilaterally. GASTROINTESTINAL: Abdomen soft, non-tender, non-distended. Positive bowel sounds. MUSCULOSKELETAL: Extremities without clubbing, cyanosis, or edema. No obvious deformities. NEUROLOGICAL: Awake and alert. No obvious cranial nerve deficits. Motor grossly within normal limits. Normal speech. PSYCHIATRIC: Flat with limited eye contact; insight and judgment poor. Results - Labs CBC & Chem 7: 01/26/18 04:10 01/26/18 04:10 Assessment and Plan - Plan Depression Pt came to the hospital voluntarily as she was kicked out of her [facility]. - management per psychiatry. Hypothyroidism TSH noted to be 23. - increase levothyroxine from 100 mcg daily to 125 mcg daily. Nurse tells me that patient has been intermittently refusing dose. - repeat TSH in 2-3 weeks (on or around 2 week of January). Chronic renal disease Creatinine appears to have been over 2 since July. May be new baseline. Unsure of prior baseline. Creatinine was normal in 2009. - avoid nephrotoxic agents. - encourage free fluids. - repeat BMP pending -patient refused lab draw 01/29 & 01/30; reordered. Anemia Likely s/t renal disease. - follow CBC. - check iron studies, B12, folate levels -patient refused lab draw 01/29 & 01/30 ; reordered. HTN On propranolol as an outpt. - continue propranolol. PPx: Ambulation Discussed with: Patient and nurse
[2018-01-31] MEDS ORDERED: traZODone 50 MG Tablet PO SCH (21:00)
[2018-02-01] MEDS: Levothyroxine 125 MCG Tablet PO SCH (06:37)
[2018-02-01] MEDS: FLUoxetine 20 MG Capsule PO SCH (08:22)
[2018-02-01] MEDS: Propranolol 10 MG Tablet PO SCH ×3 (08:22→17:53)
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
--- NOTE | 2018-02-01 12:22 | P.PN ---
Subjective Interval history: Patient is seen lying in bed. She tells me that everything is okay but does not wish to answer any specific questions. She continues to refuse her labs because she says that the needles hurt. Says that there is no possible way I can convince her to do labs. She did take her levothyroxine this morning per nurses report however patient tells me that she may not take it again because she does not like it. Physical Exam Narrative: GENERAL: Obese, well-developed adult female in no obvious distress. SKIN: Warm and dry. HEAD: Atraumatic. Normocephalic. CARDIOVASCULAR: Regular rate and rhythm. RESPIRATORY: No accessory muscle use. Clear to auscultation. Breath sounds equal bilaterally. GASTROINTESTINAL: Abdomen soft, non-tender, non-distended. Positive bowel sounds. MUSCULOSKELETAL: Extremities without clubbing, cyanosis, or edema. No obvious deformities. NEUROLOGICAL: Awake and alert. No obvious cranial nerve deficits. Motor grossly within normal limits. Normal speech. PSYCHIATRIC: Flat with limited eye contact; insight and judgment poor. Results - Labs CBC & Chem 7: 01/26/18 04:10 01/26/18 04:10 Assessment and Plan - Plan Depression Pt came to the hospital voluntarily as she was kicked out of her [facility]. - management per psychiatry. Hypothyroidism TSH noted to be 23. - increase levothyroxine from 100 mcg daily to 125 mcg daily. Nurse tells me that patient has been intermittently refusing dose. - repeat TSH in 2-3 weeks (on or around 2 week of January). Chronic renal disease Creatinine appears to have been over 2 since July. May be new baseline. Unsure of prior baseline. Creatinine was normal in 2009. - avoid nephrotoxic agents. - encourage free fluids. - repeat BMP pending -patient refused lab draw; education attempted - still refuses Anemia Likely s/t renal disease. - follow CBC. - check iron studies, B12, folate levels -patient refused lab draw HTN On propranolol as an outpt. - continue propranolol. PPx: Ambulation Discussed with: Patient and nurse Patient appears medically stable. Unable to completely manage due to refusing labs-does not appear that this is going to change in the near future. [facility] will sign off. Please reconsult if needed.
[2018-02-01] MEDS ORDERED: Haloperidol Inj 5 MG/ML Ampul IM PRN (17:30)
[2018-02-01] MEDS ORDERED: traZODone 50 MG Tablet PO PRN (17:32)
[2018-02-01] MEDS ORDERED: LORazepam 1 MG Tablet PO PRN (17:33)
[2018-02-01] MEDS ORDERED: Benztropine Inj 2 MG/2 ML Ampul IM PRN (17:34)
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
[2018-02-01] MEDS: Divalproex 500 MG DR Tablet PO SCH (20:44)
[2018-02-01] MEDS: Haloperidol 5 MG Tablet PO SCH (20:47)
[2018-02-02] MEDS: Propranolol 10 MG Tablet PO SCH ×3 (09:24→17:52)
[2018-02-02] MEDS: FLUoxetine 20 MG Capsule PO SCH (09:25)
[2018-02-02] MEDS: Haloperidol 5 MG Tablet PO SCH ×2 (09:26→20:30)
[2018-02-02] MEDS: Divalproex 500 MG DR Tablet PO SCH ×2 (09:26→20:30)
--- NOTE | 2018-02-02 10:42 | P.PNPSY ---
Subjective Chief Complaint: Psychosis Remarks: Patient seen and examined with nurse. Chart reviewed. Case discussed with nursing staff who reports patient has been pleasant and less angry. She has been medication compliant. Case discussed in treatment team. On my examination today, the patient denies SI or HI. She denies AVH. She does remain a little bit internally preoccupied. No delusional material today. Denies side effects from medications. No physical complaints. Vital Signs Temp Pulse Resp BP Pulse Ox 02/02/18 05:55 98.3 F 72 18 116/61 97 02/01/18 17:03 97.3 F L 70 108/65 97 Labs reviewed. No new labs. Review of Systems All other systems reviewed negative except as stated in HPI Mental Status Examination Appearance: Appropriate Consciousness: Alert Orientation: x4 Motor Activity: Normal gait Speech: Unremarkable Language: Adequate Fund of Knowledge: Adequate Attention and Concentration: Adequate Memory: Impaired (Psychosis interferes) Mood: Appropriate Affect: Flat Thought Process & Associations: Other ([place]) Thought Content: Hallucinations Hallucination Type: Other (Somewhat internally preoccupied) Delusion Type: None Suicidal Ideation: No Homicidal Ideation: No Insight: Poor Judgment: Poor Assessment and Plan - Assessment (1) Schizoaffective disorder Code(s): F25.9 - Schizoaffective disorder, unspecified Status: Acute - Plan Plan: Titrate Haldol to 7.5 mg twice daily to target residual psychotic symptoms. Plan for Haldol Decanoate. Continue to monitor on the inpatient unit. Continue other medications and care as ordered. Justification for Continued Inpatient Stay: Medication changes. Resolving impairment in reality construction. High risk for decompensation in less restrictive environment. Discharge Planning: Patient requires new placement. Case discussed with counselor. Request Healthcare Surrogate/Guardian Advocate?: Yes (1) Schizoaffective disorder Qualifiers: Schizoaffective disorder type: bipolar Qualified Code(s): F25.0 - Schizoaffective disorder, bipolar type
[2018-02-02] MEDS ORDERED: Haloperidol Inj 5 MG/ML Ampul IM PRN (14:19)
--- NOTE | 2018-02-02 18:03 | ECG ---
Date Performed: 02/02/2018 Time Performed: 15:42:03 PTAGE: 52 years EKG: SINUS BRADYCARDIA BORDERLINE ECG PREVIOUS TRACING : 01/18/2018 06.00 Compared to previous tracing, rate slower DOCTOR: Vinnie Britt Interpretating Date/Time 02/02/2018 18:02:26
[2018-02-03] MEDS: Divalproex 500 MG DR Tablet PO SCH ×2 (08:13→20:50)
[2018-02-03] MEDS: FLUoxetine 20 MG Capsule PO SCH (08:13)
[2018-02-03] MEDS: Propranolol 10 MG Tablet PO SCH ×3 (08:14→17:40)
[2018-02-03] MEDS: Haloperidol 5 MG Tablet PO SCH ×2 (08:15→20:50)
--- NOTE | 2018-02-03 11:17 | P.PNPSY ---
Subjective Chief Complaint: Psychosis Remarks: Patient seen and examined with nurse. Chart reviewed. Case discussed with nursing staff. No behavioral issues noted overnight. Case discussed with counselor. I have instructed the counselor to try to place the patient at [facility], ideally within the next day or 2. On my examination today, the patient is calm and cooperative. Affect is bright and reactive. She denies SI or HI. Denies AVH. No delusional material. Denies side effects from medications. No physical complaints. Vital Signs Temp Pulse Resp BP Pulse Ox 02/03/18 05:51 98.3 F 82 17 131/64 97 02/02/18 18:16 98.4 F 67 17 119/81 97 Labs reviewed. EKG sinus bradycardia with a QTC of 377 ms. Review of Systems All other systems reviewed negative except as stated in HPI Mental Status Examination Appearance: Appropriate Consciousness: Alert Orientation: x4 Motor Activity: Normal gait Speech: Unremarkable Language: Adequate Fund of Knowledge: Adequate Attention and Concentration: Adequate Memory: Impaired Mood: Appropriate Affect: Appropriate Thought Process & Associations: Other ([place]) Thought Content: Hallucinations Hallucination Type: None Delusion Type: None Suicidal Ideation: No Suicidal Plan: No Suicidal Intention: No Homicidal Ideation: No Homicidal Plan: No Homicidal Intention: No Insight: Poor Judgment: Poor Assessment and Plan - Assessment (1) Schizoaffective disorder Code(s): F25.9 - Schizoaffective disorder, unspecified Status: Acute - Plan Plan: Patient seems to be doing well with current dose of Haldol, and I will continue the dose unchanged for now. Continue other psychotropics as ordered. Continue to monitor on the inpatient unit. Continue other medications and care as ordered. Justification for Continued Inpatient Stay: High risk for decompensation in less restrictive environment. Discharge Planning: Placement, hopefully within the next 1-2 days. Request Healthcare Surrogate/Guardian Advocate?: Yes (1) Schizoaffective disorder Qualifiers: Schizoaffective disorder type: bipolar Qualified Code(s): F25.0 - Schizoaffective disorder, bipolar type
[2018-02-04] MEDS: Levothyroxine 125 MCG Tablet PO SCH (05:32)
[2018-02-04] MEDS: Haloperidol 5 MG Tablet PO SCH ×3 (09:00→21:32)
[2018-02-04] MEDS: Divalproex 500 MG DR Tablet PO SCH ×2 (09:16→21:31)
[2018-02-04] MEDS: FLUoxetine 20 MG Capsule PO SCH (09:16)
[2018-02-04] MEDS: Propranolol 10 MG Tablet PO SCH ×3 (09:16→17:38)
--- NOTE | 2018-02-04 11:50 | P.PNPSY ---
Subjective Chief Complaint: Psychosis Remarks: Patient seen and examined with counselor and nurse. Chart reviewed. Case discussed with nursing staff. Minor verbal outbursts with staff overnight but otherwise no behavioral problems. Has told staff that she does not like the effect of Haldol and refused this medication this morning; she did take it later in the day. On my exam, patient says that she does not like the Haldol, would like to be on something else. I see that she has a history of Risperdal and Consta in the past with good apparent tolerability. Given this information and her reluctance to take oral meds in general, we discuss a trial of Invega Sustenna (as this agent does not require oral supplementation), and patient is open to this. I have tried repeatedly to reach patient's mother/HCS without success to discuss initiation of this agent. No physical complaints. Patient refused vital signs this morning. Labs reviewed. No new labs. Review of Systems All other systems reviewed negative except as stated in HPI Mental Status Examination Appearance: Appropriate Consciousness: Alert Orientation: x4 Motor Activity: Normal gait, Other (No motor abnormalities noted) Speech: Unremarkable Language: Adequate Fund of Knowledge: Adequate Attention and Concentration: Adequate Memory: Impaired ([place]) Mood: Other ([place]) Affect: Appropriate Thought Process & Associations: Other ([place]) Thought Content: Appropriate Hallucination Type: None Delusion Type: None Suicidal Ideation: No Homicidal Ideation: No Insight: Poor Judgment: Poor Assessment and Plan - Assessment (1) Schizoaffective disorder Code(s): F25.9 - Schizoaffective disorder, unspecified Status: Acute - Plan Plan: Continue Haldol as ordered with goal of transitioning to Invega Sustenna once I am able to reach patient's healthcare surrogate. Continue to monitor on the inpatient unit. Continue other medications and care as ordered. Patient's case was presented to the [place] [facility] and placed in continuance for one week with mother to serve as health care surrogate. Justification for Continued Inpatient Stay: Risk for decompensation in less restrictive environment. Discharge Planning: Possible discharge to assisted living facility tomorrow. Case discussed with counselor. Request Healthcare Surrogate/Guardian Advocate?: Yes (1) Schizoaffective disorder Qualifiers: Schizoaffective disorder type: bipolar Qualified Code(s): F25.0 - Schizoaffective disorder, bipolar type
[2018-02-04 18:06] VITALS: RESP 18
[2018-02-05] MEDS: Levothyroxine 125 MCG Tablet PO SCH ×2 (05:22→05:27)
[2018-02-05 06:19] VITALS: BP 117/78; PULSE 91; TEMP 98; O2SAT 97
[2018-02-05] MEDS: FLUoxetine 20 MG Capsule PO SCH (08:39)
[2018-02-05] MEDS: Haloperidol 5 MG Tablet PO SCH (08:39)
[2018-02-05] MEDS: Divalproex 500 MG DR Tablet PO SCH (08:39)
[2018-02-05] MEDS: Propranolol 10 MG Tablet PO SCH ×2 (08:40→14:05)
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
[2018-02-05] MEDS ORDERED: Paliperidone Inj 117 MG/0.75 ML Syringe IM ONE (11:00)
== END 2018-02-05 15:35 ==
LOC: NEPD 21:32 → NEDA 01-26 17:47 → H270 01-28 12:45
PROVIDERS: ADMIT Psychiatry & Neurology Psychiatry; ATTEND Psychiatry & Neurology Psychiatry

== ENCOUNTER 2018-02-09 18:14 | Inpatient (IN) ==
[2018-02-10] MEDS ORDERED: LORazepam 1 MG Tablet PO PRN (01:59)
[2018-02-10] MEDS ORDERED: Aluminum/Magnesium/Simethacone Susp 30 ML UDC PO PRN (02:01)
--- NOTE | 2018-02-10 11:32 | P.HPPSY ---
Provisional Diagnosis Admission Date: February 09, 2018 23:40 Orrum I.: 1. Schizoaffective disorder, bipolar type Orrum II.: Deferred Competence Certification of Person's Competence To Provide Express and Informed Consent I have personally examined Deyanira Vigil, a person being served at [facility] on, February 10, 2018 1132. Express and informed consent means consent voluntarily given in writing, by a competent person, after sufficient explanation and disclosure of the subject matter involved to enable the person to make a knowing and willful decision without any element of force, fraud, deceit, duress, or other form of constraint or coercion. This person is 18 years of age or older, is not now known to be incompetent to consent to treatment with a guardian advocate, and does not have a health care surrogate or proxy currently making medical treatment decisions. I have found this person to be one of the following: [] Competent to provide express and informed consent, as defined above, for voluntary admission to this facility and is competent to provide express and informed consent for treatment. He/she has the consistent capacity to make well reasoned, willful, and knowing decisions concerning his or her medical or mental health treatment. The person fully and consistently understands the purpose of the admission for examination/placement and is fully capable of personally exercising all rights assured [place] [X] Incompetent to provide express and informed consent to voluntary admission, and this is incompetent to provide express and informed consent to treatment. The person must be transferred to involuntary status and a petition for a guardian advocate filed with the Circuit Court. [] Refusing to provide express and informed consent to voluntary admission but is competent to provide express and informed consent for treatment. The person must be discharged or transferred to involuntary status. Form shall be completed within 24 hours of a person's arrival at the receiving facility and filed in the clinical record of each person: 1. Admitted on a voluntary basis 2. Permitted to provide express and informed consent to his/her own treatment 3. Allowed to transfer from involuntary to voluntary status 4. Prior to permitting a person to consent to his or her own treatment after having been previously found incompetent to consent to treatment. History of Present Illness Capacity: Lacks capacity Chief Complaint: Psychosis, nonadherence History of Present Illness: Ms. Vigil is a 52-year-old female with a history of schizoaffective disorder who presents in transfer from [facility] under a Massey act. Documentation from outside hospital reviewed. Patient presented initially to the emergency department at [facility] and verbalized suicidal ideation with went to cut her wrists to the ED provider. It appears that the patient was then admitted to the inpatient unit at [place] under the care of Dr. Hutton who dictated an H&P. For unclear reasons, decision was made to transfer patient to [place]. I did discuss the case with Dr. Zimmer, who accepted the patient in transfer, and he reports that patient was presented as an ED patient, although it does appear that she was admitted. Patient is known to me from previous admissions, having been discharged most recently 02/05. Electronic medical record reviewed. Patient seen and examined with nurse. Chart reviewed. Case discussed with nursing staff. On my examination today, the patient presents as sarcastic and somewhat uncooperative. She tells me that she was having thoughts of cutting her wrist prior to going into the outside hospital because she was worried about her finances. She tells me "if my bills do not get paid I am going to be murdered." She is fairly paranoid. When I ask if she is experiencing ongoing suicidal thoughts, she avoids the question and instead asks "what am I going to cut myself with?" Patient endorses ideas of reference and believes that the television networks are "giving me a cue. They are giving everyone a cue." She denies audiovisual hallucinations but appears internally stimulated. She insists "I am not crazy. I am a little depressed but not crazy." Patient is loud, intrusive and irritable. She is unable to tolerate extended interview. When I try to ask her about other psychiatric symptoms she shuts down, saying " I am not talking politics. Leave me alone." I was not, in fact, asking her about politics. I am unable to obtain any meaningful past psychiatric, family, chemical dependency or social history from the patient at this time because she is uncooperative. She has no acute physical complaints. I was able to reach patient's mother Sumaya Su at the number listed in the EMR. She is willing to act as healthcare surrogate and provides consent for medications as detailed below. - Inpatient Certification I certify that the inpatient services were ordered in accordance with Medicare regulations governing the order. This includes certification that hospital inpatient services are reasonable and necessary and in the case of services not specified as inpatient-only under 42 CFR 419.22(n), that they are appropriately provided as inpatient services in accordance to with the 2-midnight benchmark under 43 CFR 412.3(e) I certify that inpatient psychiatric hospital services are medically necessary. Evaluation and treatment and/or diagnostic testing are expected to improve the patient's condition. The patient needs on a daily basis, active treatment furnished directly by or requiring the supervision of inpatient psychiatric facility personnel. Estimated Total Length of Stay (Days): 14 (10-14) Plans for Post Hospital Care: Not yet determined Review of Systems unobtainable due to mental condition PMFSH - History History Provided By: Patient - Medical History Medical History: Medical History (Last Updated 01/29/18 @ 15:25 by Ramon Faustin DO) Anemia Chronic renal disease HTN (hypertension) Hypothyroidism Anxiety Depression Insomnia - Surgical History Surgical History: Surgical History (Last Reviewed 01/26/18 @ 06:11 by ALMA Park) No history of previous surgery - Family History Family History: Family History (Last Reviewed 01/26/18 @ 06:11 by ALMA Park) Sister No family history of coronary artery disease Other Bipolar disorder - Tobacco History Second Hand Smoke Exposure: No Tobacco Use In Past 30 Days: Yes Smoking Status: Current every day smoker Tobacco Type: Cigarettes - Alcohol History How Often Do You Have a Drink Containing Alcohol: Monthly or less - Substance Use History Substance History: No History of Abuse - Immunization History Tetanus Immunization: Unsure Hx Influenza Vaccine This Season: Unable to Assess Quality Measures - Psychiatric History Psychological trauma history: Unable to obtain. Patient uncooperative. - Patient Strengths Patient's strengths (minimum of 2): In a monitored setting. Verbally fluent. Medications and Allergies Active Medications: Active Medications Acetaminophen (Tylenol) 650 mg PO Q4H PRN PRN Reason: PAIN 1-5 OR TEMP > 101 Al Hydrox/Mg Hydrox/Simethicone (Mag-Al Plus Susp Liq) 30 ml PO Q6H PRN PRN Reason: DYSPEPSIA Al Hydroxide/Mg Hydroxide (Milk Of Magnesia Liq) 30 ml PO DAILY PRN PRN Reason: CONSTIPATION Lorazepam (Ativan) 1 mg PO Q6H PRN PRN Reason: MODERATE TO SEVERE ANXIETY Lorazepam (Ativan Inj) 1 mg IM Q6H PRN PRN Reason: MODERATE TO SEVERE ANXIETY Nicotine (Habitrol 21 Mg Patch.24 Hr) 1 patch T-DERMAL DAILY NALLELY Last Admin: 02/10/18 09:00 Dose: Not Given Patch Removal (Remove Old Patch) 1 each T-DERMAL HS ONE Stop: 02/10/18 21:01 Allergies Allergy/AdvReac Type Severity Reaction Status Date / Time No Known Allergies Allergy Verified 01/25/18 23:06 Results - Labs Labs: See below Exam Vital signs: Vital Signs 02/10/18 00:00 Temperature 98.4 F Pulse Rate 79 Respiratory Rate 17 Blood Pressure 138/87 Pulse Oximetry 98 Intake & Output 02/09/18 02/10/18 02/10/18 18:59 06:59 18:59 Weight 120.2 kg Other: Weight On Admission 120.2 kg Narrative: Physical examination completed by ED provider at outside hospital. On my examination today, the patient appears to be in no acute physical distress. No motor abnormalities noted. Labs and vital signs reviewed: Labs from outside hospital reviewed: CBC WBC 13.5, Hgb 10.7 (stable) CMP GFR 34.2 (improved) Tylenol, salicylate, alcohol level all undetectable. Urinalysis bland. Urine toxicology negative. Mental Status Examination Appearance: Disheveled Consciousness: Alert, Vigilant Orientation: Person, Place (At least) Motor Activity: Normal gait Speech: Other ([place]) Language: Adequate Fund of Knowledge: Adequate Attention and Concentration: Easily distracted Memory: Unremarkable (Grossly intact on clinical exam) Mood: Oppositional, Irritable Affect: Irritable, Labile Thought Process & Associations: Other (Perseverative) Thought Content: Delusional Hallucination Type: Other (Appears internally stimulated) Delusion Type: Paranoid Homicidal Ideation: No Homicidal Plan: No Homicidal Intention: No Insight: Poor Judgment: Poor Mental Status Exam Remarks: Evasive regarding SI Assessment and Plan - Assessment (1) Schizoaffective disorder Code(s): F25.9 - Schizoaffective disorder, unspecified Status: Acute - Plan Plan: 52-year-old female with psychiatric history as detailed above who presents in transfer from outside hospital under Massey act. On my examination today, the patient presents as irritable and paranoid. She endorses recent suicidal ideation and is evasive when I ask about current suicidal ideation. The patient will be moved to the higher acuity unit for closer monitoring. She requires psychiatric hospitalization at this time for safety, observation and stabilization. Admit inpatient. Involuntary status. I have completed first opinion. Consult for second opinion. Request healthcare surrogate and guardian advocate. The patient is due for booster dose of Invega Sustenna (renally dosed), and I will order this now with consent from healthcare surrogate. I will resume Haldol supplementation along with Depakote for mood stabilization/irritability and Prozac for low mood. Plan to check a Depakote level after appropriate interval. Ativan as needed for anxiety. Benadryl as needed for sleep. Check follow-up CBC and BMP. Check TSH. Vitals every shift. Counselor to see. Disposition planning. Estimated length of stay: 10-14 days. Justification for Continued Inpatient Stay: See above Discharge Planning: Pending psychiatric stabilization Request Healthcare Surrogate/Guardian Advocate?: Yes (1) Schizoaffective disorder Qualifiers: Schizoaffective disorder type: bipolar Qualified Code(s): F25.0 - Schizoaffective disorder, bipolar type
[2018-02-10] MEDS ORDERED: Benztropine Inj 2 MG/2 ML Ampul IM PRN (12:13)
[2018-02-10] MEDS ORDERED: Haloperidol Inj 5 MG/ML Ampul IM PRN (12:15)
[2018-02-10] MEDS ORDERED: Paliperidone Inj 117 MG/0.75 ML Syringe IM ONE (12:15)
[2018-02-10] MEDS: Propranolol 10 MG Tablet PO SCH (15:51)
[2018-02-10] MEDS: Haloperidol 5 MG Tablet PO SCH (20:12)
[2018-02-10] MEDS: Divalproex 500 MG DR Tablet PO SCH (20:12)
[2018-02-11] MEDS: Levothyroxine 125 MCG Tablet PO SCH (07:08)
[2018-02-11] MEDS: Propranolol 10 MG Tablet PO SCH ×3 (08:51→17:44)
[2018-02-11] MEDS: FLUoxetine 20 MG Capsule PO SCH (08:51)
[2018-02-11] MEDS: Divalproex 500 MG DR Tablet PO SCH ×2 (08:51→20:42)
[2018-02-11] MEDS: Haloperidol 5 MG Tablet PO SCH ×2 (08:52→20:42)
[2018-02-11 09:31] LABS: Baso # (Auto) 0.1 th/mm3 (0.0-0.2); Baso % (Auto) 1.2 % (0.0-2.0); Eos # (Auto) 0.9 th/mm3 (0.0-0.4); Eos % (Auto) 9.1 % (0.0-4.0); Hematocrit 35.5 % (35.0-46.0); Hemoglobin 11.3 gm/dL (11.6-15.3); Lymph # (Auto) 2.2 th/mm3 (1.0-4.8); Lymph % (Auto) 23.9 % (9.0-44.0); Mean Corpuscular HGB Conc 31.8 % (32.0-36.0); Mean Corpuscular Hemoglobin 26.2 pg (27.0-34.0); Mean Corpuscular Volume 82.4 fL (80.0-100.0); Mean Platelet Volume 8.1 fL (7.0-11.0); Mono # (Auto) 0.6 th/mm3 (0.0-0.9); Mono % (Auto) 6.9 % (0.0-8.0); Neut # (Auto) 5.5 th/mm3 (1.8-7.7); Neut % (Auto) 58.9 % (16.0-70.0); Platelet Count 263 th/mm3 (150-450); Red Blood Count 4.31 mil/mm3 (4.00-5.30); Red Cell Distribution Width 17.3 % (11.6-17.2); White Blood Count 9.4 th/mm3 (4.0-11.0)
[2018-02-11 09:56] LABS: Calcium 9.8 mg/dL (8.5-10.1); Carbon Dioxide 27.8 meq/L (21.0-32.0); Potassium 4.7 meq/L (3.5-5.1)
[2018-02-11 10:08] LABS: Thyroid Stimulating Hormone 12.7 uIU/mL (0.358-3.740)
--- NOTE | 2018-02-11 13:41 | ECG ---
Date Performed: 02/10/2018 Time Performed: 13:12:47 PTAGE: 52 years EKG: Sinus rhythm NORMAL ECG Since the PREVIOUS TRACING , no significant change noted PREVIOUS TRACIN02/02/2018 15.42 DOCTOR: Noah Beard Interpretating Date/Time 02/11/2018 13:40:17
[2018-02-11] MEDS ORDERED: Aluminum/Magnesium/Simethacone Susp 30 ML UDC PO PRN (13:45)
[2018-02-11] MEDS ORDERED: Bisacodyl 10 MG Supp RECTAL PRN (13:45)
--- NOTE | 2018-02-11 13:54 | P.PNPSY ---
Subjective Chief Complaint: Psychosis, nonadherence Remarks: Patient seen and bach with floor staff patient continues intrusive intense with pressured speech with intense eye contact. She is showing mixed compliance with medication. Dr. Dior is done the initial's psychiatric H and P. That is been reviewed and agreed with. I have done the initial psychiatric template admission orders and the med reconciliation. Dr. Dior is done first opinion petition supporting Massey act I agree patient meets criteria for involuntary psychiatric hospitalization thus I will cosign second opinion petition supporting Massey act. I also agree with Dr. Dior that she does not have capacity thus I agree with the healthcare surrogate and guardian advocate. Patient remains delusional irritable labile and quite angry Review of Systems All other systems reviewed negative except as stated in HPI Mental Status Examination Appearance: Disheveled Consciousness: Alert, Vigilant Orientation: Person, Place (At least) Motor Activity: Normal gait Speech: Other ([place]) Language: Adequate Fund of Knowledge: Adequate Attention and Concentration: Easily distracted Memory: Unremarkable (Grossly intact on clinical exam) Mood: Oppositional, Irritable Affect: Irritable, Labile Thought Process & Associations: Other ([place]) Thought Content: Delusional Hallucination Type: Other (Appears internally stimulated) Delusion Type: Paranoid Suicidal Ideation: No (Denies at this time) Suicidal Plan: No Suicidal Intention: No Homicidal Ideation: No Homicidal Plan: No Homicidal Intention: No Insight: Poor Judgment: Poor Assessment and Plan - Assessment (1) Schizoaffective disorder Code(s): F25.9 - Schizoaffective disorder, unspecified Status: Acute - Plan Plan: Patient remains quite psychotic delusional paranoid vigilant and irritable. Trying mixed compliance medication. For now continue treatment Justification for Continued Inpatient Stay: At this time patient would decompensate a place to a lower level of care Discharge Planning: To be determined Request Healthcare Surrogate/Guardian Advocate?: Yes (1) Schizoaffective disorder Qualifiers: Schizoaffective disorder type: bipolar Qualified Code(s): F25.0 - Schizoaffective disorder, bipolar type
[2018-02-11] MEDS: Senna/Docusate Sodium 8.6/50 MG Tablet PO SCH (20:42)
[2018-02-12] MEDS: Levothyroxine 125 MCG Tablet PO SCH (06:21)
--- NOTE | 2018-02-12 09:58 | P.PNPSY ---
Subjective Chief Complaint: Psychosis, nonadherence Remarks: Patient seen and bach with floor staff, chart reviewed, patient compliant medication. Today patient is pacing the halls fairly rapidly making no eye contact with me attempts to speak with her and met with a hostile gaze and no verbal response. Though when observed from a distance today. She continues to respond to internal stimuli. For now we will increase Haldol to 10 mg twice daily Review of Systems All other systems reviewed negative except as stated in HPI Mental Status Examination Appearance: Disheveled Consciousness: Alert, Vigilant Orientation: Person, Place (At least) Motor Activity: Normal gait Speech: Other (Nonverbal today with me) Language: Adequate Fund of Knowledge: Adequate Attention and Concentration: Easily distracted Memory: Unremarkable (Grossly intact on clinical exam) Mood: Oppositional, Irritable Affect: Irritable, Labile Thought Process & Associations: Other ([place]) Thought Content: Delusional Hallucination Type: Other (Appears internally stimulated) Delusion Type: Paranoid Suicidal Ideation: No (Denies at this time) Suicidal Plan: No Suicidal Intention: No Homicidal Ideation: No Homicidal Plan: No Homicidal Intention: No Insight: Poor Judgment: Poor Assessment and Plan - Assessment (1) Schizoaffective disorder Code(s): F25.9 - Schizoaffective disorder, unspecified Status: Acute - Plan Plan: Patient remains quite psychotic paranoid and delusional, nonverbal with me today. Compliant medication. Please see medication adjustment above Justification for Continued Inpatient Stay: At this time patient would decompensate a place to the lower level of care Discharge Planning: To be determined Request Healthcare Surrogate/Guardian Advocate?: Yes (1) Schizoaffective disorder Qualifiers: Schizoaffective disorder type: bipolar Qualified Code(s): F25.0 - Schizoaffective disorder, bipolar type
[2018-02-12] MEDS: Divalproex 500 MG DR Tablet PO SCH ×2 (10:37→21:26)
[2018-02-12] MEDS: Senna/Docusate Sodium 8.6/50 MG Tablet PO SCH ×2 (10:38→21:26)
[2018-02-12] MEDS: FLUoxetine 20 MG Capsule PO SCH (10:38)
[2018-02-12] MEDS: Propranolol 10 MG Tablet PO SCH ×4 (10:39→18:15)
[2018-02-12] MEDS: Haloperidol 5 MG Tablet PO SCH (21:26)
[2018-02-13] MEDS: Levothyroxine 125 MCG Tablet PO SCH (06:15)
[2018-02-13] MEDS: Haloperidol 5 MG Tablet PO SCH ×2 (10:38→21:12)
[2018-02-13] MEDS: Divalproex 500 MG DR Tablet PO SCH ×2 (10:38→21:12)
[2018-02-13] MEDS: Senna/Docusate Sodium 8.6/50 MG Tablet PO SCH ×2 (10:38→21:12)
[2018-02-13] MEDS: Propranolol 10 MG Tablet PO SCH ×3 (10:39→19:23)
[2018-02-13] MEDS: FLUoxetine 20 MG Capsule PO SCH (10:39)
--- NOTE | 2018-02-13 16:40 | P.PNPSY ---
Subjective Chief Complaint: Psychosis, nonadherence Remarks: Reviewed electronic medical records and discussed case with staff. Follow-up was conducted in the milieu with nurse present. Patient reports that she is sleeping and eating well. Staff reports that she has had no behaviors however when stimulated she becomes very agitated. Patient is discharged focused for Thursday stating that she needs to "sign her new lease". Her mood is good and her affect is euthymic throughout the follow-up. Mental Status Examination Appearance: Disheveled Consciousness: Alert, Vigilant Orientation: Person, Place (At least) Motor Activity: Normal gait Speech: Other (Nonverbal today with me) Language: Adequate Fund of Knowledge: Adequate Attention and Concentration: Easily distracted Memory: Unremarkable (Grossly intact on clinical exam) Mood: Oppositional, Irritable Affect: Irritable, Labile Thought Process & Associations: Other (Perseverative) Thought Content: Delusional Hallucination Type: Other (Appears internally stimulated) Delusion Type: Paranoid Suicidal Ideation: No (Denies at this time) Suicidal Plan: No Suicidal Intention: No Homicidal Ideation: No Homicidal Plan: No Homicidal Intention: No Insight: Poor Judgment: Poor Assessment and Plan - Assessment (1) Schizoaffective disorder Code(s): F25.9 - Schizoaffective disorder, unspecified Status: Acute - Plan Plan: Patient will be reevaluated Thursday by the attending psychiatrist. Continue with current treatment plan. Justification for Continued Inpatient Stay: Moving this patient to a less restrictive environment would likely result in decompensation. Request Healthcare Surrogate/Guardian Advocate?: Yes (1) Schizoaffective disorder Qualifiers: Schizoaffective disorder type: bipolar Qualified Code(s): F25.0 - Schizoaffective disorder, bipolar type
[2018-02-14] MEDS: Levothyroxine 125 MCG Tablet PO SCH (06:19)
[2018-02-14] MEDS: Haloperidol 5 MG Tablet PO SCH ×2 (09:37→21:00)
[2018-02-14] MEDS: Propranolol 10 MG Tablet PO SCH ×3 (09:37→18:27)
[2018-02-14] MEDS: FLUoxetine 20 MG Capsule PO SCH (09:37)
[2018-02-14] MEDS: Divalproex 500 MG DR Tablet PO SCH ×2 (09:37→21:27)
[2018-02-14] MEDS: Senna/Docusate Sodium 8.6/50 MG Tablet PO SCH ×2 (09:37→21:27)
--- NOTE | 2018-02-14 16:29 | P.PNPSY ---
Subjective Chief Complaint: Psychosis, nonadherence Remarks: Reviewed electronic medical records and discussed case with staff. Follow-up was conducted in the day room. Her nurse reports that 2 day they found a cup with multiple medications and it had in the patient's bed. Apparently she has been cheeking her medications for a while now. When asked why she did this the patient responded, "I do not want to take Haldol it makes the bite my tongue". We discussed how to be better if she does not want to take a particular medication she discussed that with her provider or the nurse versus not taking any of her medications. She is discharged focused stating that she wants to leave tomorrow. At one point she did become highly irritable cursing and screaming at the nurse however, after short period of time she calmed down and her mood became euthymic once again. Mental Status Examination Appearance: Disheveled Consciousness: Alert, Vigilant Orientation: Person, Place (At least) Motor Activity: Normal gait Speech: Other (Nonverbal today with me) Language: Adequate Fund of Knowledge: Adequate Attention and Concentration: Easily distracted Memory: Unremarkable (Grossly intact on clinical exam) Mood: Oppositional, Irritable Affect: Irritable, Labile Thought Process & Associations: Other (Perseverative) Thought Content: Delusional Hallucination Type: Other (Appears internally stimulated) Delusion Type: Paranoid Suicidal Ideation: No (Denies at this time) Suicidal Plan: No Suicidal Intention: No Homicidal Ideation: No Homicidal Plan: No Homicidal Intention: No Insight: Poor Judgment: Poor Assessment and Plan - Assessment (1) Schizoaffective disorder Code(s): F25.9 - Schizoaffective disorder, unspecified Status: Acute - Plan Plan: Patient will be reevaluated tomorrow by the attending psychiatrist. Continue with current treatment plan. Justification for Continued Inpatient Stay: Moving this patient to a less restrictive environment would likely result in decompensation. Request Healthcare Surrogate/Guardian Advocate?: Yes (1) Schizoaffective disorder Qualifiers: Schizoaffective disorder type: bipolar Qualified Code(s): F25.0 - Schizoaffective disorder, bipolar type
[2018-02-15] MEDS: Levothyroxine 125 MCG Tablet PO SCH (05:57)
[2018-02-15] MEDS: Senna/Docusate Sodium 8.6/50 MG Tablet PO SCH ×2 (08:27→20:25)
[2018-02-15] MEDS: Haloperidol 5 MG Tablet PO SCH ×2 (08:27→20:25)
[2018-02-15] MEDS: Propranolol 10 MG Tablet PO SCH ×3 (08:27→17:43)
[2018-02-15] MEDS: Divalproex 500 MG DR Tablet PO SCH ×2 (08:28→20:25)
[2018-02-15] MEDS: FLUoxetine 20 MG Capsule PO SCH (08:28)
--- NOTE | 2018-02-15 16:13 | P.PNPSY ---
Subjective Chief Complaint: Psychosis, nonadherence Remarks: Reviewed electronic medical records and discussed case with staff. Follow-up was conducted in patient's room. She was found lying on the bed awake and alert. Her nurse reports that this morning she was a bit resistant to having her mouth checked post medication administration. She did eventually comply. She states she has been sleeping well and her appetite has been good. Her nurse additionally reports that the patient's mother's been calling complaining that the patient is not on a heart healthy diet, which she is, and stating that she had been fed pasta. When asked if she had pasta for dinner the patient denied it. Mental Status Examination Appearance: Disheveled Consciousness: Alert, Vigilant Orientation: Person, Place (At least) Motor Activity: Normal gait Speech: Other (Nonverbal today with me) Language: Adequate Fund of Knowledge: Adequate Attention and Concentration: Easily distracted Memory: Unremarkable (Grossly intact on clinical exam) Mood: Oppositional, Irritable Affect: Irritable, Labile Thought Process & Associations: Other (Perseverative) Thought Content: Delusional Hallucination Type: Other (Appears internally stimulated) Delusion Type: Paranoid Suicidal Ideation: No (Denies at this time) Suicidal Plan: No Suicidal Intention: No Homicidal Ideation: No Homicidal Plan: No Homicidal Intention: No Insight: Poor Judgment: Poor Assessment and Plan - Assessment (1) Schizoaffective disorder Code(s): F25.9 - Schizoaffective disorder, unspecified Status: Acute - Plan Plan: Patient will be reevaluated tomorrow by the attending psychiatrist. Continue with current treatment plan. Justification for Continued Inpatient Stay: Moving this patient to a less restrictive environment would likely result in decompensation. Request Healthcare Surrogate/Guardian Advocate?: Yes (1) Schizoaffective disorder Qualifiers: Schizoaffective disorder type: bipolar Qualified Code(s): F25.0 - Schizoaffective disorder, bipolar type
[2018-02-16] MEDS: Levothyroxine 125 MCG Tablet PO SCH (05:39)
[2018-02-16] MEDS: FLUoxetine 20 MG Capsule PO SCH (08:00)
[2018-02-16] MEDS: Haloperidol 5 MG Tablet PO SCH ×2 (08:01→20:44)
[2018-02-16] MEDS: Propranolol 10 MG Tablet PO SCH ×3 (08:01→17:58)
[2018-02-16] MEDS: Divalproex 500 MG DR Tablet PO SCH ×2 (08:01→20:44)
[2018-02-16] MEDS: Senna/Docusate Sodium 8.6/50 MG Tablet PO SCH ×2 (08:01→20:44)
--- NOTE | 2018-02-16 13:01 | P.PNPSY ---
Subjective Chief Complaint: Psychosis, nonadherence Remarks: Patient seen in her room with nurse Diane, patient sitting quietly on the edge of her bed, chart reviewed, patient compliant medicine. Staff fund of room mouth checks with her. Patient also had in [facility] a booster of 78 mg 02/10 today patient denies voices or visions suicidality homicidality. For now continue treatment need to consider free he have to adjust the in [facility] a Review of Systems All other systems reviewed negative except as stated in HPI Mental Status Examination Appearance: Disheveled (Better) Consciousness: Alert, Vigilant Orientation: Person, Place (At least) Motor Activity: Normal gait Speech: Other (Nonverbal today with me) Language: Adequate Fund of Knowledge: Adequate Attention and Concentration: Easily distracted Memory: Unremarkable (Grossly intact on clinical exam) Mood: Oppositional, Irritable Affect: Irritable, Labile Thought Process & Associations: Other (Perseverative) Thought Content: Delusional Hallucination Type: Other (Appears internally stimulated) Delusion Type: Paranoid Suicidal Ideation: No (Denies at this time) Suicidal Plan: No Suicidal Intention: No Homicidal Ideation: No Homicidal Plan: No Homicidal Intention: No Insight: Poor Judgment: Poor Assessment and Plan - Assessment (1) Schizoaffective disorder Code(s): F25.9 - Schizoaffective disorder, unspecified Status: Acute - Plan Plan: Patient remains somewhat intrusive and psychotic Justification for Continued Inpatient Stay: At this time patient would decompensate a place to the lower level of care Discharge Planning: Possible return to [facility] Request Healthcare Surrogate/Guardian Advocate?: Yes (1) Schizoaffective disorder Qualifiers: Schizoaffective disorder type: bipolar Qualified Code(s): F25.0 - Schizoaffective disorder, bipolar type
[2018-02-17] MEDS: Levothyroxine 125 MCG Tablet PO SCH (06:00)
[2018-02-17] MEDS: Propranolol 10 MG Tablet PO SCH ×3 (06:05→13:41)
[2018-02-17] MEDS: Haloperidol 5 MG Tablet PO SCH ×2 (08:41→20:37)
[2018-02-17] MEDS: Divalproex 500 MG DR Tablet PO SCH ×2 (08:41→20:36)
[2018-02-17] MEDS: Senna/Docusate Sodium 8.6/50 MG Tablet PO SCH ×2 (08:41→20:36)
[2018-02-17] MEDS: FLUoxetine 20 MG Capsule PO SCH (08:41)
--- NOTE | 2018-02-17 13:34 | P.PNPSY ---
Subjective Chief Complaint: Psychosis, nonadherence Remarks: Patient seen in her room with nurse Diane, patient continues to isolate laying in bed much of the day. Though otherwise no behavior problem. She continues somewhat delusional and spiritual type of a manner and grandiose. She states she has been stronger medicine than not sleeping at. Today she denies suicidality homicidality voices or visions. We will have staff continue to monitor closely for compliance and check for cheeking. Review of Systems All other systems reviewed negative except as stated in HPI Mental Status Examination Appearance: Disheveled (Better) Consciousness: Alert, Vigilant Orientation: Person, Place (At least) Motor Activity: Normal gait Speech: Other (Nonverbal today with me) Language: Adequate Fund of Knowledge: Adequate Attention and Concentration: Easily distracted Memory: Unremarkable (Grossly intact on clinical exam) Mood: Oppositional, Irritable Affect: Irritable, Labile Thought Process & Associations: Other (Perseverative) Thought Content: Delusional Hallucination Type: Other (Appears internally stimulated) Delusion Type: Paranoid Suicidal Ideation: No (Denies at this time) Suicidal Plan: No Suicidal Intention: No Homicidal Ideation: No Homicidal Plan: No Homicidal Intention: No Insight: Poor Judgment: Poor Assessment and Plan - Assessment (1) Schizoaffective disorder Code(s): F25.9 - Schizoaffective disorder, unspecified Status: Acute - Plan Plan: Patient remains psychotic somewhat intense and vigilant. Compliant medications Justification for Continued Inpatient Stay: At this time patient would decompensate a place to a lower level of care Discharge Planning: Probable return to [facility] Request Healthcare Surrogate/Guardian Advocate?: Yes (1) Schizoaffective disorder Qualifiers: Schizoaffective disorder type: bipolar Qualified Code(s): F25.0 - Schizoaffective disorder, bipolar type
[2018-02-18] MEDS: Levothyroxine 125 MCG Tablet PO SCH (05:55)
[2018-02-18] MEDS: Divalproex 500 MG DR Tablet PO SCH ×2 (08:01→20:32)
[2018-02-18] MEDS: Senna/Docusate Sodium 8.6/50 MG Tablet PO SCH ×2 (08:01→20:32)
[2018-02-18] MEDS: FLUoxetine 20 MG Capsule PO SCH (08:01)
[2018-02-18] MEDS: Haloperidol 5 MG Tablet PO SCH ×2 (08:01→20:32)
--- NOTE | 2018-02-18 08:43 | P.PNPSY ---
Subjective Chief Complaint: Psychosis, nonadherence Remarks: Patient seen in her room with floor staff, chart reviewed, patient discussed with nurse. Patient compliant medications. Patient laying calmly in bed she is pleasant with me today denies voices denies suicidality. She still wishes to return to [facility]. When asked about her possible sexual activity there she just giggled and smiled. I counseled her is through the risks involved with indiscriminate sexual activity. However at this time patient no longer meets Massey act criteria but I still feel she can benefit from further stabilization thus I will lift the Massey act allow the patient signed voluntary continue hospitalization Review of Systems All other systems reviewed negative except as stated in HPI Mental Status Examination Appearance: Disheveled (Better) Consciousness: Alert, Vigilant Orientation: Person, Place (At least) Motor Activity: Normal gait Speech: Other (Nonverbal today with me) Language: Adequate Fund of Knowledge: Adequate Attention and Concentration: Easily distracted Memory: Unremarkable (Grossly intact on clinical exam) Mood: Oppositional, Irritable Affect: Irritable, Labile Thought Process & Associations: Other (Perseverative) Thought Content: Delusional Hallucination Type: Other (Appears internally stimulated) Delusion Type: Paranoid Suicidal Ideation: No (Denies at this time) Suicidal Plan: No Suicidal Intention: No Homicidal Ideation: No Homicidal Plan: No Homicidal Intention: No Insight: Poor Judgment: Poor Assessment and Plan - Assessment (1) Schizoaffective disorder Code(s): F25.9 - Schizoaffective disorder, unspecified Status: Acute - Plan Plan: Patient continues psychotic though softening, compliant medications, will lift Massey act low patient signed voluntary Justification for Continued Inpatient Stay: At this time patient would decompensate a place to the lower level of care Discharge Planning: To be determined probably back to [facility] Request Healthcare Surrogate/Guardian Advocate?: Yes (1) Schizoaffective disorder Qualifiers: Schizoaffective disorder type: bipolar Qualified Code(s): F25.0 - Schizoaffective disorder, bipolar type
[2018-02-18] MEDS: Propranolol 10 MG Tablet PO SCH ×2 (12:16→17:32)
[2018-02-19] MEDS: Levothyroxine 125 MCG Tablet PO SCH (06:49)
[2018-02-19] MEDS: Haloperidol 5 MG Tablet PO SCH ×2 (11:08→20:12)
[2018-02-19] MEDS: Senna/Docusate Sodium 8.6/50 MG Tablet PO SCH ×2 (11:09→20:12)
[2018-02-19] MEDS: FLUoxetine 20 MG Capsule PO SCH (11:09)
[2018-02-19] MEDS: Divalproex 500 MG DR Tablet PO SCH ×2 (11:09→20:12)
[2018-02-19] MEDS: Propranolol 10 MG Tablet PO SCH ×3 (11:10→18:17)
--- NOTE | 2018-02-19 11:47 | P.PNPSY ---
Subjective Chief Complaint: Psychosis, nonadherence Remarks: Patient seen today in day room with floor staff, patient chart reviewed, patient compliant medication. Patient calm cooperative with a somewhat childish superficial grin on her face. There are no behavioral problems noted. She continues to wish to return to [facility] next week. At this time is okay with me. However there is still some immature sexualized type of behavior. She does states she has one boyfriend they have that she is sexually active with. We will continue to talk about precautions related to that we will check Depakote blood level over in a.m. Mental Status Examination Appearance: Disheveled (Better) Consciousness: Alert, Vigilant Orientation: Person, Place (At least) Motor Activity: Normal gait Speech: Other (Nonverbal today with me) Language: Adequate Fund of Knowledge: Adequate Attention and Concentration: Easily distracted Memory: Unremarkable (Grossly intact on clinical exam) Mood: Oppositional, Irritable Affect: Irritable, Labile Thought Process & Associations: Other (Perseverative) Thought Content: Delusional Hallucination Type: Other (Appears internally stimulated) Delusion Type: Paranoid Suicidal Ideation: No (Denies at this time) Suicidal Plan: No Suicidal Intention: No Homicidal Ideation: No Homicidal Plan: No Homicidal Intention: No Insight: Poor Judgment: Poor Assessment and Plan - Assessment (1) Schizoaffective disorder Code(s): F25.9 - Schizoaffective disorder, unspecified Status: Acute - Plan Plan: Patient's psychosis is resolving her affect is calm being somewhat though there is still the suicidal sexually inappropriate behaviors Justification for Continued Inpatient Stay: At this time patient would decompensate a place to a lower level of care Discharge Planning: Probable return home to [facility] Request Healthcare Surrogate/Guardian Advocate?: Yes (1) Schizoaffective disorder Qualifiers: Schizoaffective disorder type: bipolar Qualified Code(s): F25.0 - Schizoaffective disorder, bipolar type
[2018-02-20] MEDS: Levothyroxine 125 MCG Tablet PO SCH (06:26)
[2018-02-20] MEDS: Haloperidol 5 MG Tablet PO SCH ×2 (08:55→20:42)
[2018-02-20] MEDS: Propranolol 10 MG Tablet PO SCH ×4 (08:55→18:20)
[2018-02-20] MEDS: Divalproex 500 MG DR Tablet PO SCH ×2 (08:55→20:42)
[2018-02-20] MEDS: FLUoxetine 20 MG Capsule PO SCH (08:56)
[2018-02-20] MEDS: Senna/Docusate Sodium 8.6/50 MG Tablet PO SCH ×2 (08:56→20:43)
[2018-02-20] MEDS: Acetaminophen 325 MG Tablet PO PRN ×2 (12:10→22:39)
--- NOTE | 2018-02-20 14:48 | P.PNPSY ---
Subjective Chief Complaint: Psychosis, nonadherence Remarks: Patient was seen and case discussed with nursing. Per nursing patient becomes delusional and paranoid during bedtime. During the day they have not noted any internal stimulation. Thought process remains disorganized. Patient is compliant with her medications and has not had any outbursts Mental Status Examination Appearance: Disheveled (Better) Consciousness: Alert, Vigilant Orientation: Person, Place (At least) Motor Activity: Normal gait Speech: Other (Nonverbal today with me) Language: Adequate Fund of Knowledge: Adequate Attention and Concentration: Easily distracted Memory: Unremarkable (Grossly intact on clinical exam) Mood: Irritable Affect: Irritable, Labile Thought Process & Associations: Other (Perseverative) Thought Content: Delusional Hallucination Type: Other (Appears internally stimulated) Delusion Type: Paranoid Suicidal Ideation: No (Denies at this time) Suicidal Plan: No Suicidal Intention: No Homicidal Ideation: No Homicidal Plan: No Homicidal Intention: No Insight: Poor Judgment: Poor Assessment and Plan - Assessment (1) Schizoaffective disorder Code(s): F25.9 - Schizoaffective disorder, unspecified Status: Acute - Plan Plan: Continue current treatment plan Justification for Continued Inpatient Stay: Patient would decompensate in a less restrictive setting Request Healthcare Surrogate/Guardian Advocate?: Yes (1) Schizoaffective disorder Qualifiers: Schizoaffective disorder type: bipolar Qualified Code(s): F25.0 - Schizoaffective disorder, bipolar type
[2018-02-21] MEDS: Levothyroxine 125 MCG Tablet PO SCH (06:09)
[2018-02-21] MEDS: Propranolol 10 MG Tablet PO SCH ×3 (09:45→17:42)
[2018-02-21] MEDS: FLUoxetine 20 MG Capsule PO SCH (09:45)
[2018-02-21] MEDS: Haloperidol 5 MG Tablet PO SCH ×2 (09:45→20:34)
[2018-02-21] MEDS: Divalproex 500 MG DR Tablet PO SCH ×2 (09:45→20:34)
[2018-02-21] MEDS: Senna/Docusate Sodium 8.6/50 MG Tablet PO SCH ×2 (09:48→20:34)
--- NOTE | 2018-02-21 15:17 | P.PNPSY ---
Subjective Chief Complaint: Psychosis, nonadherence Remarks: Patient was seen and case discussed with nursing. Earlier today patient called 911. She called because she wanted to go to a homeless retirement. Insight is poor and thought process is quite simple and concrete. However, she has not had any physical altercations or verbal outbursts. She is compliant on the unit Mental Status Examination Appearance: Disheveled (Better) Consciousness: Alert, Vigilant Orientation: Person, Place (At least) Motor Activity: Normal gait Speech: Other (Nonverbal today with me) Language: Adequate Fund of Knowledge: Adequate Attention and Concentration: Easily distracted Memory: Unremarkable (Grossly intact on clinical exam) Mood: Irritable Affect: Irritable, Labile Thought Process & Associations: Other (Perseverative) Thought Content: Delusional Hallucination Type: Other (Appears internally stimulated) Delusion Type: Paranoid Suicidal Ideation: No (Denies at this time) Suicidal Plan: No Suicidal Intention: No Homicidal Ideation: No Homicidal Plan: No Homicidal Intention: No Insight: Poor Judgment: Poor Assessment and Plan - Assessment (1) Schizoaffective disorder Code(s): F25.9 - Schizoaffective disorder, unspecified Status: Acute - Plan Plan: Continue current treatment plan Justification for Continued Inpatient Stay: Patient would decompensate in a less restrictive setting Request Healthcare Surrogate/Guardian Advocate?: Yes (1) Schizoaffective disorder Qualifiers: Schizoaffective disorder type: bipolar Qualified Code(s): F25.0 - Schizoaffective disorder, bipolar type
[2018-02-22] MEDS: Levothyroxine 125 MCG Tablet PO SCH (05:51)
[2018-02-22] MEDS: Divalproex 500 MG DR Tablet PO SCH ×2 (08:42→20:20)
[2018-02-22] MEDS: Senna/Docusate Sodium 8.6/50 MG Tablet PO SCH ×2 (08:42→20:20)
[2018-02-22] MEDS: Propranolol 10 MG Tablet PO SCH ×3 (08:42→17:52)
[2018-02-22] MEDS: Haloperidol 5 MG Tablet PO SCH ×2 (08:42→20:20)
[2018-02-22] MEDS: FLUoxetine 20 MG Capsule PO SCH (08:42)
--- NOTE | 2018-02-22 20:40 | P.PNPSY ---
Subjective Chief Complaint: Psychosis, nonadherence Remarks: Patient seen for follow-up, chart reviewed. Discussion nursing staff reported the patient yesterday had called marijuana and request to be taken to homeless correction. Patient was found in day room, calm and cooperative. Patient states that she is sleeping well, eating and drinking well, noted to have some internal preoccupation during interview but with concrete responses. Patient states she is tolerating her medications well, denying any perceptual disturbances. Patient looking forward for discharge. Review of Systems All other systems reviewed negative except as stated in HPI Mental Status Examination Appearance: Appropriate Consciousness: Alert, Vigilant Orientation: Person, Place (At least) Motor Activity: Normal gait Speech: Other (Nonverbal today with me) Language: Adequate Fund of Knowledge: Adequate Attention and Concentration: Easily distracted Memory: Unremarkable (Grossly intact on clinical exam) Mood: Appropriate Affect: Blunt Thought Process & Associations: Other ([place]) Thought Content: Preoccupations (With discharge) Hallucination Type: None Delusion Type: Paranoid Suicidal Ideation: No (Denies at this time) Suicidal Plan: No Suicidal Intention: No Homicidal Ideation: No Homicidal Plan: No Homicidal Intention: No Insight: Poor Judgment: Poor Assessment and Plan - Assessment (1) Schizoaffective disorder Code(s): F25.9 - Schizoaffective disorder, unspecified Status: Acute - Plan Plan: Patient this time has been compliant with treatment no behavioral disturbances, focused on discharge. Patient interacted well, that appears and has been participatory in groups. We will continue current treatment. We will continue to monitor mood and behavior. Discharge planning a progress. Justification for Continued Inpatient Stay: At risk for further decompensation if at lower level of care. Request Healthcare Surrogate/Guardian Advocate?: Yes (1) Schizoaffective disorder Qualifiers: Schizoaffective disorder type: bipolar Qualified Code(s): F25.0 - Schizoaffective disorder, bipolar type
[2018-02-22] MEDS: Acetaminophen 325 MG Tablet PO PRN (21:34)
[2018-02-23] MEDS: Levothyroxine 125 MCG Tablet PO SCH (05:25)
[2018-02-23] MEDS: FLUoxetine 20 MG Capsule PO SCH (09:07)
[2018-02-23] MEDS: Divalproex 500 MG DR Tablet PO SCH ×2 (09:07→20:17)
[2018-02-23] MEDS: Haloperidol 5 MG Tablet PO SCH (09:07)
[2018-02-23] MEDS: Propranolol 10 MG Tablet PO SCH ×3 (09:07→20:17)
[2018-02-23] MEDS: Senna/Docusate Sodium 8.6/50 MG Tablet PO SCH ×2 (09:08→20:18)
--- NOTE | 2018-02-23 14:11 | P.PNPSY ---
Subjective Chief Complaint: Psychosis, nonadherence Remarks: Patient seen in her room with nurse Nicolasa, chart reviewed, patient continues to isolate, continues somewhat distracted as if responding to internal stimuli. States she wants to be discharged today. I go to [facility] however it appears [facility] has been closed so it is not available as a residence for her. I explained this to her and she somewhat reluctantly acknowledge it states is willing to stay longer. There is still a question about her compliance with medication. I will change the Haldol tablets to Haldol elixir. Review of Systems All other systems reviewed negative except as stated in HPI Mental Status Examination Appearance: Appropriate Consciousness: Alert, Vigilant Orientation: Person, Place (At least) Motor Activity: Normal gait Speech: Other (Nonverbal today with me) Language: Adequate Fund of Knowledge: Adequate Attention and Concentration: Easily distracted Memory: Unremarkable (Grossly intact on clinical exam) Mood: Appropriate Affect: Blunt Thought Process & Associations: Other ([place]) Thought Content: Preoccupations (With discharge) Hallucination Type: None Delusion Type: Paranoid Suicidal Ideation: No (Denies at this time) Suicidal Plan: No Suicidal Intention: No Homicidal Ideation: No Homicidal Plan: No Homicidal Intention: No Insight: Poor Judgment: Poor Assessment and Plan - Assessment (1) Schizoaffective disorder Code(s): F25.9 - Schizoaffective disorder, unspecified Status: Acute - Plan Plan: Patient remains quite psychotic. She medication adjustment above. With [facility] placement may become quite problematic for this young woman Justification for Continued Inpatient Stay: At this point patient would decompensate a place to a lower level of care Discharge Planning: With [facility] closing placement becomes quite problematic Request Healthcare Surrogate/Guardian Advocate?: Yes (1) Schizoaffective disorder Qualifiers: Schizoaffective disorder type: bipolar Qualified Code(s): F25.0 - Schizoaffective disorder, bipolar type
[2018-02-23] MEDS: Acetaminophen 325 MG Tablet PO PRN (15:07)
[2018-02-23] MEDS: Haloperidol Lactate Oral Conc 10 MG/5 ML UDC PO SCH (20:17)
[2018-02-24] MEDS: Levothyroxine 125 MCG Tablet PO SCH (05:29)
[2018-02-24] MEDS: Haloperidol Lactate Oral Conc 10 MG/5 ML UDC PO SCH ×2 (08:36→20:27)
[2018-02-24] MEDS: Divalproex 500 MG DR Tablet PO SCH ×2 (08:37→20:28)
[2018-02-24] MEDS: Senna/Docusate Sodium 8.6/50 MG Tablet PO SCH ×2 (08:37→20:28)
[2018-02-24] MEDS: Propranolol 10 MG Tablet PO SCH ×3 (08:37→18:08)
[2018-02-24] MEDS: FLUoxetine 20 MG Capsule PO SCH (08:37)
--- NOTE | 2018-02-24 11:08 | P.PNPSY ---
Subjective Chief Complaint: Psychosis, nonadherence Remarks: Patient seen in her room with nurse Nicolasa, chart reviewed, patient compliant medications, patient laying quietly in bed she is calm today more cooperative and processing of the fact that her prior residence, [facility], has been closed they were looking diligently for another placement for her. She denies the somewhat vague about voices. She does deny suicidality. For now continue treatment Review of Systems All other systems reviewed negative except as stated in HPI Mental Status Examination Appearance: Appropriate Consciousness: Alert, Vigilant Orientation: Person, Place (At least) Motor Activity: Normal gait Speech: Other (Nonverbal today with me) Language: Adequate Fund of Knowledge: Adequate Attention and Concentration: Easily distracted Memory: Unremarkable (Grossly intact on clinical exam) Mood: Appropriate Affect: Blunt Thought Process & Associations: Other ([place]) Thought Content: Preoccupations (With discharge) Hallucination Type: None Delusion Type: Paranoid Suicidal Ideation: No (Denies at this time) Suicidal Plan: No Suicidal Intention: No Homicidal Ideation: No Homicidal Plan: No Homicidal Intention: No Insight: Poor Judgment: Poor Assessment and Plan - Assessment (1) Schizoaffective disorder Code(s): F25.9 - Schizoaffective disorder, unspecified Status: Acute - Plan Plan: Patient remained somewhat superficial silly and somewhat disorganized. Justification for Continued Inpatient Stay: At this time patient would decompensate if placed in a lower level of care Discharge Planning: To be determined placement may become difficult with the closing of [facility] Request Healthcare Surrogate/Guardian Advocate?: Yes (1) Schizoaffective disorder Qualifiers: Schizoaffective disorder type: bipolar Qualified Code(s): F25.0 - Schizoaffective disorder, bipolar type
[2018-02-24 16:34] VITALS: TEMP 97.8
[2018-02-25] MEDS: Levothyroxine 125 MCG Tablet PO SCH (05:23)
[2018-02-25 06:01] VITALS: BP 141/73; PULSE 93; RESP 20; O2SAT 95
[2018-02-25] MEDS: Haloperidol Lactate Oral Conc 10 MG/5 ML UDC PO SCH (08:25)
[2018-02-25] MEDS: Divalproex 500 MG DR Tablet PO SCH (08:25)
[2018-02-25] MEDS: FLUoxetine 20 MG Capsule PO SCH (08:25)
[2018-02-25] MEDS: Propranolol 10 MG Tablet PO SCH ×2 (08:25→12:59)
[2018-02-25] MEDS: Senna/Docusate Sodium 8.6/50 MG Tablet PO SCH (08:25)
--- NOTE | 2018-02-25 10:20 | P.PNPSY ---
Subjective Chief Complaint: Psychosis, nonadherence Remarks: Patient seen in day room with nurse Quin, chart reviewed, patient compliant medication. Patient calm cooperative with me continues somewhat childlike and superficial today she is denying voices of denying suicidality. Is excited about possible placement in a local [facility]. For now continue treatment. When asked about her behavior reviewed with the men on the unit she again is severely childlike smile. Need to reinforce with her her need for appropriate boundaries with men Review of Systems All other systems reviewed negative except as stated in HPI Mental Status Examination Appearance: Appropriate Consciousness: Alert, Vigilant Orientation: Person, Place (At least) Motor Activity: Normal gait Speech: Other (Nonverbal today with me) Language: Adequate Fund of Knowledge: Adequate Attention and Concentration: Easily distracted Memory: Unremarkable (Grossly intact on clinical exam) Mood: Appropriate Affect: Blunt Thought Process & Associations: Other ([place]) Thought Content: Preoccupations (With discharge) Hallucination Type: None Delusion Type: Paranoid Suicidal Ideation: No (Denies at this time) Suicidal Plan: No Suicidal Intention: No Homicidal Ideation: No Homicidal Plan: No Homicidal Intention: No Insight: Poor Judgment: Poor Assessment and Plan - Assessment (1) Schizoaffective disorder Code(s): F25.9 - Schizoaffective disorder, unspecified Status: Acute - Plan Plan: Patient remained somewhat psychotic and paranoid childlike. We will improved, compliant medication Justification for Continued Inpatient Stay: At this time patient would decompensate a place to a lower level of care Discharge Planning: To be determined Request Healthcare Surrogate/Guardian Advocate?: Yes (1) Schizoaffective disorder Qualifiers: Schizoaffective disorder type: bipolar Qualified Code(s): F25.0 - Schizoaffective disorder, bipolar type
--- NOTE | 2018-02-25 14:32 | P.DSPSY ---
Psychiatry Discharge Summary Inpatient Psychiatric care?: Yes Advance Directives: No Mental Health Advance Directive: No Health Care Proxy: No - Admission Admission Date: February 09, 2018 23:40 - Admission Diagnosis (1) Schizoaffective disorder Code(s): F25.9 - Schizoaffective disorder, unspecified Brief History: Ms. Vigil is a 52-year-old female with a history of schizoaffective disorder who presents in transfer from [facility] under a [facility] act. Documentation from outside hospital reviewed. Patient presented initially to the emergency department at [facility] and verbalized suicidal ideation with went to cut her wrists to the ED provider. It appears that the patient was then admitted to the inpatient unit at [facility] under the care of Dr. Hutton who dictated an H&P. For unclear reasons, decision was made to transfer patient to [place]. I did discuss the case with Dr. Zimmer, who accepted the patient in transfer, and he reports that patient was presented as an ED patient, although it does appear that she was admitted. Patient is known to me from previous admissions, having been discharged most recently 02/05. Electronic medical record reviewed. Patient seen and examined with nurse. Chart reviewed. Case discussed with nursing staff. On my examination today, the patient presents as sarcastic and somewhat uncooperative. She tells me that she was having thoughts of cutting her wrist prior to going into the outside hospital because she was worried about her finances. She tells me "if my bills do not get paid I am going to be murdered." She is fairly paranoid. When I ask if she is experiencing ongoing suicidal thoughts, she avoids the question and instead asks "what am I going to cut myself with?" Patient endorses ideas of reference and believes that the television networks are "giving me a cue. They are giving everyone a cue." She denies audiovisual hallucinations but appears internally stimulated. She insists "I am not crazy. I am a little depressed but not crazy." Patient is loud, intrusive and irritable. She is unable to tolerate extended interview. When I try to ask her about other psychiatric symptoms she shuts down, saying " I am not talking politics. Leave me alone." I was not, in fact, asking her about politics. I am unable to obtain any meaningful past psychiatric, family, chemical dependency or social history from the patient at this time because she is uncooperative. She has no acute physical complaints. I was able to reach patient's mother Sumaya Su at the number listed in the EMR. She is willing to act as healthcare surrogate and provides consent for medications as detailed below. Tobacco Use In Past 30 Days: Yes How Often Do You Have a Drink Containing Alcohol: Monthly or less Hospital Course: Patient's hospital course was slow but progressive. Patient's initial noncompliance medication hiding of medication slowly resolved with current length of stay. She showed minimal socialization interaction on the unit though she was no other behavioral problem. She spent much of her time in her room though her ADLs were good she did come out for meals and activities. Today she denies voices or visions suicidality homicidality. There was an earlier progress note dictated by me today however after that note is dictated a placement was found for this lady [facility] There is a bed available for her this afternoon thus patient will be discharged today to that facility with Rx 1 month follow-up services through that facility or through [facility] at the stomach feel patient reached maximum benefit of this hospitalization - Discharge Discharge Date: 02/25/18 - Discharge Diagnosis (1) Schizoaffective disorder Code(s): F25.9 - Schizoaffective disorder, unspecified Status: Acute Discharge Disposition: Assisted Living Facility - Discharge Instructions Discharge Diet: Regular Diet Activities You Can Perform: Regular- No Restrictions - Discharge Time > 30 minutes Mental Status Examination Appearance: Appropriate Consciousness: Alert, Vigilant Orientation: Person, Place (At least) Motor Activity: Normal gait Speech: Other (Nonverbal today with me) Language: Adequate Fund of Knowledge: Adequate Attention and Concentration: Easily distracted Memory: Unremarkable (Grossly intact on clinical exam) Mood: Appropriate Affect: Blunt Thought Process & Associations: Other ([place]) Thought Content: Preoccupations (With discharge) Hallucination Type: None Delusion Type: Paranoid Suicidal Ideation: No (Denies at this time) Suicidal Plan: No Suicidal Intention: No Homicidal Ideation: No Homicidal Plan: No Homicidal Intention: No Insight: Poor Judgment: Poor Discharge/Advance Care Plan - Results Vital Signs: Last Vital Signs Temp 97.8 F 02/25/18 06:00 Pulse 93 H 02/25/18 06:00 Resp 20 02/25/18 06:00 BP 141/73 H 02/25/18 06:00 Pulse Ox 95 02/25/18 06:00 Lab Results: Laboratory Results TSH 12.700 uIU/mL (0.358-3.740) H 02/11/18 09:06 Valproic Acid 77 mcg/mL (50-100) 02/20/18 07:22 Summary of Procedures: None done Pending Results: None - Medications Number of antipsychotic medications at discharge: 2 Appropriate use of more than 1 antipsychotic med: Doc plan:prev multi med use- monotherapy taper/cross-taper in progress (Would consider discontinuation of the in Mary sustain a injection of patient remains stabilized on the Haldol) - Discharge Care Plan Goals to Promote Your Health: * To prevent worsening of your condition and complications * To maintain your health at the optimal level Directions to Meet Your Goals: Take your medications as prescribed Follow your dietary instruction Follow activity as directed Keep your appointments as scheduled Take your immunizations and boosters as scheduled If your symptoms worsen call your PCP, if no PCP go to Urgent Care Center or Emergency Room For 02/02 questions related to your inpatient stay or results of tests pending at discharge, please contact Dr. Tim Gifford MD at Smoking is Dangerous to Your Health. Avoid second hand smoking (1) Schizoaffective disorder Qualifiers: Schizoaffective disorder type: bipolar Qualified Code(s): F25.0 - Schizoaffective disorder, bipolar type (1) Schizoaffective disorder Qualifiers: Schizoaffective disorder type: bipolar Qualified Code(s): F25.0 - Schizoaffective disorder, bipolar type
== END 2018-02-25 17:20 ==
LOC: H260 02-10 01:29 → H270 02-10 17:34
PROVIDERS: ADMIT Psychiatry & Neurology Psychiatry; ATTEND Psychiatry & Neurology Psychiatry